=== PATIENT | female | born 1965 | race Caucasian/White ===

== ENCOUNTER → 2017-09-28 | Day surgery (SDC) | payer BC ==
[~2017-09-28] MED LIST: Ketorolac 30 MG/ML SDV IVPUSH SCH; Lactated Ringers 1,000 ML IV SCH; Lactated Ringers 1,000 ML ONE; Lidocaine 1% 4 ML ONE; Lidocaine 1%/Sod Bicarbonate in NS 8.4% 1 ML Syringe IV PRN; Midazolam 1 MG/ML 2 ML SDV ONE; Propofol 200 MG/20 ML SDV ONE; Sodium Chloride 0.9% 10 ML Syringe FLUSH PRN; fentaNYL 100 MCG/2 ML SDV ONE
--- NOTE | 2017-09-28 08:13 | PCM.PREANE ---
Preanesthetic Assessment - Anesthesia/Transfusion/Family Hx Anesthesia History: Prior Anesthesia Without Reaction Family History of Anesthesia Reaction: No Transfusion History: No Prior Transfusion(s) - Review of Systems General: No Symptoms Pulmonary: No Symptoms Cardiovascular: Dyspnea on Exertion Gastrointestinal: Diarrhea Neurological: No Symptoms Other: Reports: Diabetes (check @ 0800 176) - Physical Assessment NPO Status Date: 09/27/17 NPO Status Time: 00:00 Pulse: 104 O2 Sat by Pulse Oximetry: 95 Respiratory Rate: 18 Blood Pressure: 142/90 Temperature: 36.9 C Height: 1.63 m Weight: 104.916 kg ASA Class: 2 Mental Status: Alert & Oriented x3 Airway Class: Mallampati = 3 Dentition: Reports: Normal Dentition Thyro-Mental Finger Breadths: 2 Mouth Opening Finger Breadths: 2 ROM/Head Extension: Full Lungs: Clear to Auscultation, Normal Respiratory Effort Cardiovascular: Regular Rate, Regular Rhythm, No Murmurs - Lab Values: Laboratory Last Values POC Glucose 175 mg/dL (70-105) H 09/28/17 07:59 - Allergies Allergies/Adverse Reactions: Allergies Allergy/AdvReac Type Severity Reaction Status Date / Time liraglutide [From Victoza] Allergy Nausea and Verified 09/25/17 13:43 Vomiting metformin Allergy Nausea and Verified 09/25/17 13:43 Vomiting metoprolol Allergy Diarrhea Verified 09/25/17 13:43 - Blood Blood Available: No Product(s) Available: None - Anesthesia Plan Pre-Op Medication Ordered: None - Acknowledgements Anesthesia Type Planned: MAC Pt an Appropriate Candidate for the Planned Anesthesia: Yes Alternatives and Risks of Anesthesia Discussed w Pt/Guardian: Yes Pt/Guardian Understands and Agrees with Anesthesia Plan: Yes PreAnesthesia Questionnaire Cardiovascular History: Reports: High Cholesterol, Hypertension Respiratory History: Reports: Sleep Apnea Gastrointestinal History: Reports: GERD Musculoskeletal History: Reports: Other (See Below) Other Musculoskeletal History: foot pain Neurological History: Reports: Migraines, Other (See Below) Other Neuro History: restless leg Endocrine/Metabolic History: Reports: Diabetes, Type II, Obesity/BMI 30+, Vitamin D Deficiency - Past Surgical History GI Surgical History: Reports: EGD Musculoskeletal Surgical History: Reports: Arthroscopic Knee, Other (See Below) Other Musculoskeletal Surgeries/Procedures:: right acl recostruction - SUBSTANCE USE Smoking Status *Q: Current Every Day Smoker Tobacco Use Within Last Twelve Months: Cigarettes Second Hand Smoke Exposure: No Days Per Week of Alcohol Use: 0 Recreational Drug Use History: No - HOME MEDS Home Medications: Home Meds Amitriptyline [Elavil] 50 mg PO BEDTIME 01/01/15 [History] Lisinopril 20 mg PO DAILY 01/01/15 [History] Aspirin [Halfprin] 81 mg PO DAILY 09/25/17 [History] Cholecalciferol (Vitamin D3) [Vitamin D3] 2,000 units PO DAILY 09/25/17 [History ] Ezetimibe [Zetia] 10 mg PO DAILY 09/25/17 [History] Fish Oil/[place]-3 Fatty Acids [Fish Oil 1,000 MG] 1 cap PO DAILY 09/25/17 [ History] Insulin Aspart [Novolog Flexpen] 16 units SUBCUT TID 09/25/17 [History] Insulin Detemir [Levemir Flextouch] 60 unit SUBCUT DAILY 09/25/17 [History] Magnesium Oxide 400 mg PO DAILY 09/25/17 [History] Multivitamin [Multivitamins] 1 cap PO DAILY 09/25/17 [History] Pantoprazole Sodium [Protonix] 40 mg PO DAILY 09/25/17 [History] SUMAtriptan Succinate [Imitrex] 100 mg PO ASDIRECTED PRN 09/25/17 [History] Ubidecarenone [Co Q-10] 100 mg PO DAILY 09/25/17 [History] Vitamin E 100 unit PO DAILY 09/25/17 [History] atorvaSTATin [Lipitor] 40 mg PO DAILY 09/25/17 [History] glipiZIDE [Glucotrol XL] 10 mg PO DAILY 09/25/17 [History] - CURRENT (IN HOUSE) MEDS Current Meds: Current Medications Lactated Ringer's (Ringers, Lactated) 1,000 mls @ 125 mls/hr IV ASDIRECTED JAN Stop: 09/28/17 18:00 Lidocaine/Sodium Bicarbonate (Buffered Lidocaine 1% In Ns 8.4%) 0.25 ml IV ONETIME PRN PRN Reason: Prior to IV Start Stop: 09/28/17 18:00 Sodium Chloride (Saline Flush) 10 ml FLUSH ASDIRECTED PRN PRN Reason: Keep Vein Open Stop: 09/28/17 18:00
--- NOTE | 2017-09-28 10:02 | PCM.OPNOTE ---
- General Post-Op/Procedure Note Date of Surgery/Procedure: 09/28/17 Operative Procedure(s): positive fit ttest and GERD Pre Op Diagnosis: EGD with bx and colonoscopy to cecum Post-Op Diagnosis: Same Anesthesia Technique: MAC Primary Surgeon: Sunday Ramirez EBL in mLs: 0 Complications: None Condition: Good
[2017-09-28 10:24] VITALS: BP 131/80
--- NOTE | 2017-09-29 08:42 | OR ---
DATE OF OPERATION: 09/28/2017 SURGEON: Sunday Ramirez MD PREOPERATIVE DIAGNOSIS: Gastroesophageal reflux disease. POSTOPERATIVE DIAGNOSIS: Gastroesophageal reflux disease. PROCEDURE: EGD with biopsy done under IV sedation. FINDINGS: Second portion of the duodenum, duodenal bulb, and pyloric channel were normal. Antrum, body, and cardia of the stomach were unremarkable. Biopsy of the antrum was done looking for H. pylori. J-maneuver showed a small sliding hiatal hernia. Fundus was normal. GE junction was located at 39 cm, did not show any acute disease. Biopsies were taken. Rest of the esophagus was viewed and was normal. The patient tolerated the procedure, which is EGD with biopsy under IV sedation. DESCRIPTION OF PROCEDURE: The patient was taken to the endoscopy room, placed in a supine position, connected to the monitoring equipment, given IV sedation, and placed in the left lateral position. Bite block was inserted, and video Olympus gastroscope was placed in the posterior oropharynx. Under direct vision, threaded past the cricopharyngeus down the esophagus into the stomach. The stomach was insufflated, and the scope passed through the pylorus to the second portion of the duodenum. The second portion of the scope was slowly withdrawn showing normal second portion of the duodenum, duodenal bulb, and pyloric channel. Antrum, body, and cardia of the stomach were viewed. J-maneuver showed an intact fundus. The hiatus showed a small sliding hiatal hernia. Biopsies of the antrum were performed. Scope was withdrawn through the GE junction which did not show any acute disease. Z-line was intact. Biopsies of the GE junction were performed. The rest of the esophagus was viewed as the scope withdrawn and was unremarkable. The patient tolerated the procedure. The specimen was sent to pathology in labeled container and IV sedation continued for colonoscopy. OPERATION PERFORMED: ANESTHESIA: ESTIMATED BLOOD LOSS: MMODAL /[id number]
--- NOTE | 2017-09-29 08:42 | OR ---
DATE OF OPERATION: 09/28/2017 SURGEON: Sunday Ramirez MD PREOPERATIVE DIAGNOSIS: Positive FIT test. POSTOPERATIVE DIAGNOSIS: Positive FIT test. OPERATION PERFORMED: Colonoscopy of cecum. FINDINGS: Occasional diverticula in the sigmoid colon. There were no angiodysplasias, neoplasias, large tumor masses, ulcerations, or hemorrhoids. ANESTHESIA: Procedure done under IV sedation. DESCRIPTION OF PROCEDURE: The patient having been taken to the endoscopy room, placed in a supine position, connected to monitoring, and given IV sedation for upper GI endoscopy. IV sedation was continued for colonoscopy. She was placed in the left lateral position. The perianal area was inspected, it was normal. Rectal exam showed good sphincter tone. A video Olympus colonoscope was then introduced into the rectum and threaded up without problem to the cecum, where the appendicular orifice was noted. Prep was excellent. [place] cleansing score grade A and the scope was slowly withdrawn showing the cecum, ascending colon, transverse colon, descending colon, sigmoid colon, and rectum. A retroflexed view was done. The patient tolerated the procedure, the above noted was found, and the recommendationto repeat colonoscopy in 10 years and have her follow up in the clinic. ESTIMATED BLOOD LOSS: MMODAL /[id number]
== END | disposition home or self-care (01) ==
LOC: JD.SDS 07:28
PROVIDERS: ATTEND Surgery
DX: K29.50 Unspecified chronic gastritis without bleeding (principal); K20.9 Esophagitis, unspecified; K44.9 Diaphragmatic hernia without obstruction or gangrene; K57.30 Diverticulosis of large intestine without perforation or abscess without bleeding; I10 Essential (primary) hypertension; E78.2 Mixed hyperlipidemia; E11.9 Type 2 diabetes mellitus without complications; K21.9 Gastro-esophageal reflux disease without esophagitis; G47.33 Obstructive sleep apnea (adult) (pediatric); Z88.8 Allergy status to other drugs, medicaments and biological substances; Z79.4 Long term (current) use of insulin; Z79.82 Long term (current) use of aspirin; Z79.899 Other long term (current) drug therapy; F17.210 Nicotine dependence, cigarettes, uncomplicated
CPT/HCPCS: 43239; 45378; 81025; 82962; J1885; J2250; J3010; J7120; 00810; J2704

== ENCOUNTER 2017-11-20 07:45 | Emergency (ER) | payer BC ==
[2017-11-20 07:54] VITALS: BP 137/99
[2017-11-20] MEDS ORDERED: Metoclopramide 10 MG/2 ML SDV IVPUSH ONE ×2 (08:04→08:09)
[2017-11-20] MEDS ORDERED: Ketorolac 30 MG/ML SDV IVPUSH SCH (08:15)
[2017-11-20] MEDS ORDERED: Dextrose 5%-Lactated Ringers 1,000 ML IV SCH ×2 (08:15)
--- NOTE | 2017-11-20 08:15 | EDM.PDOC ---
ED HPI GENERAL MEDICAL PROBLEM - General Chief Complaint: Gastrointestinal Problem Stated Complaint: VOMITING AND DIARRHEA X 12 HRS Time Seen by Provider: 11/20/17 08:00 Source of Information: Reports: Patient, Family (spouse) History Limitations: Reports: No Limitations - History of Present Illness INITIAL COMMENTS - FREE TEXT/NARRATIVE: 52-year-old female presents the ED with history of intractable nausea and vomiting and large-volume water loss diarrhea since 2000 hrs. last evening. Patient reports she does not believe she got into any bad food.Has been basically eating the same foods as her for the last 2 days. The lipase she's been is to the grocery store and [employer]. She does have some chills and a terrible uncomfortable feeling in the upper epigastrium that seems to radiate under the costal margins to her back a bit. This is compatible with metabolic acidosis. Of note the patient is a type II diabetic controlled with insulin and glipizide. She did not check her sugars this morning. She feels lightheaded and dizzy. She spent most of the night in the bathroom on the floor. Emesis is been bilious without any blood. Stools have been yellow content but large-volume water loss. No reveals severe abdominal cramps. No previous abdominal surgery. Recent antibiotic usage. Onset: Sudden Onset Date: 11/19/17 Onset Time: 20:00 Duration: Hour(s): Location: Reports: Abdomen (Nausea vomiting and diarrhea.) Quality: Reports: Ache, Pressure Severity: Moderate (Mostly in the epigastrium) Improves with: Reports: None Worsens with: Reports: Eating Context: Denies: Activity, Exercise (Nava drink or eat anything.), Lifting, Sick Contact, Trauma, Other Associated Symptoms: Reports: Diaphoresis (Chills but no defined fever), Fever/ Chills, Loss of Appetite, Malaise, Nausea/Vomiting, Weakness (Especially lower extremities.). Denies: Confusion, Chest Pain, Cough, cough w sputum, Headaches , Rash (Intractable 12 hours), Seizure, Shortness of Breath, Syncope Treatments LOSS PREVENTION RESEARCH ENGINEER: Reports: Other (see below) (None.) - Related Data Allergies Allergy/AdvReac Type Severity Reaction Status Date / Time latex Allergy Rash Verified 11/20/17 07:54 liraglutide [From Victoza] AdvReac Nausea and Verified 09/28/17 10:29 Vomiting metformin AdvReac Nausea and Verified 09/28/17 10:29 Vomiting metoprolol AdvReac Diarrhea Verified 09/28/17 10:29 Home Meds: Home Meds Amitriptyline [Elavil] 50 mg PO BEDTIME 01/01/15 [History] Lisinopril 20 mg PO DAILY 01/01/15 [History] Aspirin [Halfprin] 81 mg PO DAILY 09/25/17 [History] Cholecalciferol (Vitamin D3) [Vitamin D3] 2,000 units PO DAILY 09/25/17 [History ] Ezetimibe [Zetia] 10 mg PO DAILY 09/25/17 [History] Fish Oil/[place]-3 Fatty Acids [Fish Oil 1,000 MG] 1 cap PO DAILY 09/25/17 [ History] Insulin Aspart [Novolog Flexpen] 20 units SUBCUT TID 09/25/17 [History] Insulin Detemir [Levemir Flextouch] 60 unit SUBCUT DAILY 09/25/17 [History] Magnesium Oxide 400 mg PO DAILY 09/25/17 [History] Multivitamin [Multivitamins] 1 cap PO DAILY 09/25/17 [History] Pantoprazole Sodium [Protonix] 40 mg PO DAILY 09/25/17 [History] SUMAtriptan Succinate [Imitrex] 100 mg PO ASDIRECTED PRN 09/25/17 [History] Ubidecarenone [Co Q-10] 100 mg PO DAILY 09/25/17 [History] Vitamin E 100 unit PO DAILY 09/25/17 [History] atorvaSTATin [Lipitor] 40 mg PO DAILY 09/25/17 [History] glipiZIDE [Glucotrol XL] 10 mg PO DAILY 09/25/17 [History] Triamcinolone Acetonide [Triamcinolone Acetonide 0.1% Crm] 1 applic TOP ASDIRECTED 09/28/17 [History] Dicyclomine [Bentyl] 20 mg PO Q6H PRN #5 tablet 11/20/17 [Rx] Ondansetron [Zofran] 4 mg BUCCAL Q6H PRN #8 tab 11/20/17 [Rx] Past Medical History Cardiovascular History: Reports: High Cholesterol, Hypertension Respiratory History: Reports: Sleep Apnea Gastrointestinal History: Reports: GERD Musculoskeletal History: Reports: Other (See Below) Other Musculoskeletal History: foot pain Neurological History: Reports: Migraines, Other (See Below) Other Neuro History: restless leg Endocrine/Metabolic History: Reports: Diabetes, Type II, Obesity/BMI 30+, Vitamin D Deficiency - Past Surgical History GI Surgical History: Reports: Colonoscopy, EGD Musculoskeletal Surgical History: Reports: Arthroscopic Knee, Other (See Below) Other Musculoskeletal Surgeries/Procedures:: right acl recostruction Social & Family History - Tobacco Use Smoking Status *Q: Current Every Day Smoker Years of Tobacco use: 25 Packs/Tins Daily: 1 Second Hand Smoke Exposure: No - Caffeine Use Caffeine Use: Reports: Coffee, Soda - Alcohol Use Days Per Week of Alcohol Use: 0 - Recreational Drug Use Recreational Drug Use: No Drug Use in Last 12 Months: No - Living Situation & Occupation Living situation: Reports: Occupation: Unemployed ED ROS GENERAL - Review of Systems Review Of Systems: See Below Constitutional: Reports: Chills, Malaise, Weakness, Fatigue, Decreased Appetite HEENT: Reports: No Symptoms Respiratory: Reports: No Symptoms Cardiovascular: Reports: No Symptoms Endocrine: Reports: Fatigue, High Glucose GI/Abdominal: Reports: Abdominal Pain (Moreover pressure primarily in the epigastrium.), Diarrhea (Watery and yellow in consistency with large volume losses almost hourlyx 12..), Decreased Appetite, Nausea, Vomiting (Bilious emesis intractably for the last 12 hours.) : Reports: No Symptoms Musculoskeletal: Reports: Muscle Pain (Mild generalized myalgia.) Skin: Reports: No Symptoms Neurological: Reports: Dizziness. Denies: Trouble Speaking, Change in Speech, Gait Disturbance (With walking and standing.) Psychiatric: Reports: No Symptoms Hematologic/Lymphatic: Reports: No Symptoms Immunologic: Reports: No Symptoms ED EXAM, GI/ABD - Physical Exam Exam: See Below Exam Limited By: No Limitations General Appearance: Alert, WD/WN, Mild Distress Eyes: Bilateral: Normal Appearance (No jaundice.) Throat/Mouth: Other Head: Atraumatic (Tongue is very dry and coated.), Normocephalic Neck: Normal Inspection, Supple, Non-Tender, Full Range of Motion. No: Lymphadenopathy (L), Lymphadenopathy (R) Respiratory/Chest: No Respiratory Distress, Lungs Clear, Normal Breath Sounds, Chest Non-Tender Cardiovascular: Normal Peripheral Pulses, No Edema, No Gallop, No Murmur, No Rub , Tachycardia (Resting heart rate is 1 35/m.) GI/Abdominal Exam: No Organomegaly, Tender (Mostly in the epigastrium and appears to be musculoskeletal.), Other (Moderate obesity. Abdominal wall is firm palpation without any surgical scars. Moderately distended and mildly tympanitic to percussion.) Back Exam: Normal Inspection, Full Range of Motion. No: CVA Tenderness (L), CVA Tenderness (R) Extremities: Normal Inspection, Normal Range of Motion, Non-Tender, No Pedal Edema Neurological: Alert, Oriented, CN II-XII Intact, Normal Cognition Psychiatric: Normal Affect, Normal Mood Skin Exam: Warm, Dry, Intact, Normal Color, No Rash Course - Vital Signs Last Recorded V/S: Last Vital Signs Temp 36.7 C 11/20/17 07:49 Pulse 133 H 11/20/17 07:49 Resp 16 11/20/17 07:49 BP 137/99 H 11/20/17 07:49 Pulse Ox 93 L 11/20/17 07:49 - Orders/Labs/Meds Labs: Laboratory Tests 11/20/17 11/20/17 11/20/17 Range/Units 08:00 08:00 08:00 WBC 11.66 H (3.98-10.04) K/mm3 RBC 5.44 H (3.98-5.22) M/mm3 Hgb 16.8 H (11.2-15.7) gm/L Hct 48.5 H (34.1-44.9) % MCV 89.2 (79.4-94.8) fl MCH 30.9 (25.6-32.2) pg MCHC 34.6 (32.2-35.5) g/dl RDW Std Deviation 44.0 (36.4-46.3) fL Plt Count 305 (182-369) K/mm3 MPV 9.2 L (9.4-12.3) fl Neutrophils % (Manual) 80 H (40-60) % Band Neutrophils % 0 (0-10) % Lymphocytes % (Manual) 18 L (20-40) % Monocytes % (Manual) 2 (2-10) % Eosinophils % (Manual) 0 L (0.7-5.8) % Basophils % (Manual) 0 L (0.1-1.2) Platelet Estimate Adequate RBC Morph Comment Normal Sodium 134 L (136-145) mEq/L Potassium 4.1 (3.5-5.1) mEq/L Chloride 98 (98-107) mEq/L Carbon Dioxide 26 (21-32) mEq/L Anion Gap 14.1 (5-15) BUN 17 (7-18) mg/dL Creatinine 1.1 H (0.55-1.02) mg/dL Est Cr Clr Drug Dosing 52.25 mL/min Estimated GFR (MDRD) 52 (>60) mL/min BUN/Creatinine Ratio 15.5 (14-18) Glucose 390 H (74-106) mg/dL Calcium 8.8 (8.5-10.1) mg/dL Magnesium (1.8-2.4) mg/dl Total Bilirubin 0.9 (0.2-1.0) mg/dL AST 18 (15-37) U/L ALT 31 (14-59) U/L Alkaline Phosphatase 83 (46-116) U/L C-Reactive Protein 11.9 H* (<1.0) mg/dL Total Protein 7.4 (6.4-8.2) g/dl Albumin 3.5 (3.4-5.0) g/dl Globulin 3.9 gm/dL Albumin/Globulin Ratio 0.9 L (1-2) Amylase (25-115) U/L Ketones 0.01 (0.0-0.3) mM 11/20/17 Range/Units 08:00 WBC (3.98-10.04) K/mm3 RBC (3.98-5.22) M/mm3 Hgb (11.2-15.7) gm/L Hct (34.1-44.9) % MCV (79.4-94.8) fl MCH (25.6-32.2) pg MCHC (32.2-35.5) g/dl RDW Std Deviation (36.4-46.3) fL Plt Count (182-369) K/mm3 MPV (9.4-12.3) fl Neutrophils % (Manual) (40-60) % Band Neutrophils % (0-10) % Lymphocytes % (Manual) (20-40) % Monocytes % (Manual) (2-10) % Eosinophils % (Manual) (0.7-5.8) % Basophils % (Manual) (0.1-1.2) Platelet Estimate RBC Morph Comment Sodium (136-145) mEq/L Potassium (3.5-5.1) mEq/L Chloride (98-107) mEq/L Carbon Dioxide (21-32) mEq/L Anion Gap (5-15) BUN (7-18) mg/dL Creatinine (0.55-1.02) mg/dL Est Cr Clr Drug Dosing mL/min Estimated GFR (MDRD) (>60) mL/min BUN/Creatinine Ratio (14-18) Glucose (74-106) mg/dL Calcium (8.5-10.1) mg/dL Magnesium 1.4 L (1.8-2.4) mg/dl Total Bilirubin (0.2-1.0) mg/dL AST (15-37) U/L ALT (14-59) U/L Alkaline Phosphatase (46-116) U/L C-Reactive Protein (<1.0) mg/dL Total Protein (6.4-8.2) g/dl Albumin (3.4-5.0) g/dl Globulin gm/dL Albumin/Globulin Ratio (1-2) Amylase 8 L (25-115) U/L Ketones (0.0-0.3) mM Meds: Medications Discontinued Medications Generic Name Dose Route Start Last Admin Trade Name Chandanq PRN Reason Stop Dose Admin Dextrose/Lactated Ringer's 1,000 mls @ 999 mls/hr 11/20/17 08:15 11/20/17 08: 10 Dextrose 5%-Lactated Ringers IV 999 mls/hr STAT JAN Administration Dextrose/Lactated Ringer's 1,000 mls @ 999 mls/hr 11/20/17 08:15 Dextrose 5%-Lactated Ringers IV ASDIRECTED [facility] Insulin Detemir 40 unit 11/20/17 09:24 11/20/17 09:46 Levemir SUBCUT 11/20/17 09:25 40 units ONETIME ONE Administration Insulin Human Regular 10 unit 11/20/17 09:24 11/20/17 09:46 Humulin R SUBCUT 11/20/17 09:25 10 unit ONETIME ONE Administration Protocol Ketorolac Tromethamine 30 mg 11/20/17 08:15 11/20/17 08:16 Toradol IVPUSH 30 mg ONETIME JAN Administration Ketorolac Tromethamine Confirm 11/20/17 08:21 11/20/17 08:21 Toradol Administered 11/20/17 08:22 Not Given Dose 30 mg .ROUTE .STK-MED ONE Metoclopramide HCl 10 mg 11/20/17 08:04 11/20/17 08:10 Reglan IVPUSH 11/20/17 08:05 10 mg ONETIME ONE Administration Metoclopramide HCl 10 mg 11/20/17 08:09 11/20/17 08:13 Reglan IVPUSH 11/20/17 08:10 Not Given ONETIME ONE - Radiology Interpretation Free Text/Narrative:: 52-year-old female presents to the ED with acute onset of nausea vomiting and large volumes diarrhea losses starting 12 hours ago. She's vomited most of the night and unable to sleep. She's had a large volume stool loss almost every hour. She appears to picked up a viral gastroenteritis that is going through the community at present. Associated chills but no documented fever. She is a type II diabetic controlled with insulin and glipizide. Does not check her blood sugars this morning. She has withheld her insulin dose. Plan IV D5 Ringer' s lactate at open. Will give Reglan 10 mg IV and Toradol 30 g IV for nausea vomiting and abdominal discomfort which I believe is due to mild metabolic acidosis. Labs will be drawn for CBC CMP amylase CRP magnesium and serum ketones. - Re-Assessments/Exams Free Text/Narrative Re-Assessment/Exam: 11/20/17 09:23 White count is mildly elevated at 11.66. Hemoglobin is elevated at 16.8 with hematocrit of 48.5 suggesting some degree of hemoconcentration. Platelet count is 305,000. Differential reveals 80% neutrophils and no bands reported. Sodium is slightly low at 134. Potassium 4.1. Chloride 98 bicarbonate is 26. And a gap is 14.1. BUNs 17. Creatinine is 1.1.e GFR is 52. Glucose at this time is 390. Calcium is 8.8 magnesium slightly low at 1.4. Bilirubin is 0.9. C-reactive protein is markedly elevated at 11.9. Amylase is normal at 8. Patient is feeling better in terms no further nausea or vomiting. She's had no diarrhea since entering the ED. Blood sugars fairly high at this time and therefore we will give her two thirds of her normal Levemir dose i.e. 40 mg subcutaneous. Also 10 units of regular insulin subcutaneously to bring her sugars under control. 11/20/17 09:50 ; Serum ketones were 0.01 i.e. normal. Patient feels much improved after liter of IV fluids is requesting to go home. She will be discharged on Zofran 4 mg sublingual every 4-6 hours when necessary as needed. Also Bentyl 20 mg every 6 hours. For relief of town cramping pain. Advisable clear fluid diet stay away from all dairy products and no apple or grape juice until stools are formed backup. She will monitor her blood sugars every 3 hours and give insulin per sliding scale she has at home. She will return to the ED over the weekend if she continues to have nausea or vomiting. Departure - Departure Time of Disposition: :43 Disposition: Home, Self-Care 01 Condition: Fair Clinical Impression: Gastroenteritis Hyperglycemia due to type 2 diabetes mellitus Qualifiers: Diabetes mellitus intermediate card tender insulin use: with detention use Qualified Code(s): E11.65 - Type 2 diabetes mellitus with hyperglycemia - Discharge Information Prescriptions: Dicyclomine [Bentyl] 20 mg PO Q6H PRN #5 tablet PRN Reason: Abdominal cramps/diarrhea Ondansetron [Zofran] 4 mg [place] Q6H PRN #8 tab PRN Reason: nausea or vomiting Instructions: Type 2 Diabetes Mellitus, Adult, Nausea, Adult Referrals: Rupal Finch MD [Primary Care Provider] - Forms: ED Department Discharge Additional Instructions: Evaluation the emergency room today in regards to acute onset of nausea vomiting and associated prolific diarrhea with large volume stool losses. Illness started proximal to 12 hours before arrival in the ED. Note type 2 diabetes controlled with insulin and glipizide. Diagnosis is viral gastroenteritis. You're treated in the ER with a liter of IV fluids to provide rehydration and medication Reglan 10 mg IV for nausea relief and Toradol 30 mg IV for abdominal discomfort. Treatment at home is clear fluids such as Gatorade or Powerade ideally 5-6 ounces sipped per hour once this is tolerated may advance to crackers and toast. If this is tolerated may advance to soup broth or chicken riceturkey noodle etc. May use Zofran 4 mg of the tongue every 4 hours as needed for nausea or vomiting relief. Bentyl 20 mg one tablet every 6 hours for at least 3 tablets and then see how you're doing as far as abdominal pain or diarrhea. He be used every 6 hours after this for relief of abdominal discomfort cramping etc. Diarrhea usually last 2-3 days. The vomiting component has been lasting about 16-24 hours. Your blood sugar the ED today was 319 therefore you were given two thirds of your normal Levemir dose 40 units subcutaneously and 10 units of regular insulin subcutaneously for blood sugar control. Suggest checking her sugars every 3-4 hours today and use regular insulin as needed to provide control. Ideally would like her sugars between 150 and 200. Of course return to the ED if vomiting persists in spite of medication etc.
[2017-11-20] MEDS ORDERED: Ketorolac 30 MG/ML SDV ONE (08:21)
[2017-11-20] MEDS ORDERED: Insulin Regular, Human 100 Units/ML 3 ML Vial SUBCUT ONE (09:24)
[2017-11-20] MEDS ORDERED: Insulin Detemir 100 Units/ML 3 ML Pen SUBCUT ONE (09:24)
== END 2017-11-20 09:50 | disposition home or self-care (01) ==
LOC: JD.ED 07:45
DX: K52.9 Noninfective gastroenteritis and colitis, unspecified (principal); E11.65 Type 2 diabetes mellitus with hyperglycemia; I10 Essential (primary) hypertension; E78.00 Pure hypercholesterolemia, unspecified; F17.210 Nicotine dependence, cigarettes, uncomplicated; Z91.040 Latex allergy status; Z88.8 Allergy status to other drugs, medicaments and biological substances; Z79.4 Long term (current) use of insulin; Z79.899 Other long term (current) drug therapy
CPT/HCPCS: 36415; 80053; 82009; 82150; 83735; 85025; 86140; 96361; 96372; 96374; 96375; 99284; J1815; J1817; J1885; J2765; J7042

== ENCOUNTER 2018-02-13 16:11 | Emergency (ER) | payer BC ==
[2018-02-13 16:23] VITALS: BP 135/85
--- NOTE | 2018-02-13 16:46 | EDM.PDOC ---
ED HPI GENERAL MEDICAL PROBLEM - General Chief Complaint: Abdominal Pain Stated Complaint: LLQ pain Time Seen by Provider: 02/13/18 16:30 Source of Information: Reports: Patient, RN Notes Reviewed History Limitations: Reports: No Limitations - History of Present Illness INITIAL COMMENTS - FREE TEXT/NARRATIVE: 52 year old female presents to the ED with complaints of left lower quadrant and midline cramping. She describes it as severe. Symptoms started around 10am this morning. She gets relief from sitting on the toilet. She's felt like she needs to have a bowel movement but hasn't been able. She denies constipation. States "I've never been constipated in my whole life." She reports a normal, soft BM yesterday. She is passing gas today. Reports nausea but no vomiting. She had a colonoscopy a couple months ago and was told she has diverticulosis. She has no history of diverticulitis. No fever but has had intermittent chills and sweats. No diarrhea. Has not ate any rotten food. Her abdomen is distended. She has a poor appetite. History of Type II diabetes. She was in the ED in October for similar symptoms and was felt to have gastroenteritis. Lower Abdominal Pain Score (Numeric/FACES): 9 - Related Data Allergies Allergy/AdvReac Type Severity Reaction Status Date / Time latex Allergy Rash Verified 02/13/18 17:32 liraglutide [From Victoza] AdvReac Nausea and Verified 02/13/18 17:32 Vomiting metformin AdvReac Nausea and Verified 02/13/18 17:32 Vomiting metoprolol AdvReac Diarrhea Verified 02/13/18 17:32 trigenta Allergy Cannot Uncoded 02/13/18 17:32 Remember Home Meds: Home Meds Amitriptyline [Elavil] 50 mg PO BEDTIME 01/01/15 [History] Lisinopril 20 mg PO DAILY 01/01/15 [History] Aspirin [Halfprin] 81 mg PO DAILY 09/25/17 [History] Cholecalciferol (Vitamin D3) [Vitamin D3] 2,000 units PO DAILY 09/25/17 [History ] Ezetimibe [Zetia] 10 mg PO DAILY 09/25/17 [History] Fish Oil/[place]-3 Fatty Acids [Fish Oil 1,000 MG] 1 cap PO DAILY 09/25/17 [ History] Insulin Aspart [Novolog Flexpen] 20 units SUBCUT TID 09/25/17 [History] Insulin Detemir [Levemir Flextouch] 60 unit SUBCUT DAILY 09/25/17 [History] Magnesium Oxide 400 mg PO DAILY 09/25/17 [History] Multivitamin [Multivitamins] 1 cap PO DAILY 09/25/17 [History] Pantoprazole Sodium [Protonix] 40 mg PO DAILY 09/25/17 [History] SUMAtriptan Succinate [Imitrex] 100 mg PO ASDIRECTED PRN 09/25/17 [History] Ubidecarenone [Co Q-10] 100 mg PO DAILY 09/25/17 [History] Vitamin E 100 unit PO DAILY 09/25/17 [History] atorvaSTATin [Lipitor] 40 mg PO DAILY 09/25/17 [History] glipiZIDE [Glucotrol XL] 10 mg PO DAILY 09/25/17 [History] Triamcinolone Acetonide [Triamcinolone Acetonide 0.1% Crm] 1 applic TOP ASDIRECTED 09/28/17 [History] Dicyclomine [Bentyl] 20 mg PO Q6H PRN #5 tablet 11/20/17 [Rx] Ondansetron [Zofran] 4 mg BUCCAL Q6H PRN #8 tab 11/20/17 [Rx] Varenicline [Chantix] 1 mg PO BID 02/13/18 [History] Past Medical History Cardiovascular History: Reports: High Cholesterol, Hypertension Respiratory History: Reports: Sleep Apnea Gastrointestinal History: Reports: GERD Musculoskeletal History: Reports: Other (See Below) Other Musculoskeletal History: foot pain Neurological History: Reports: Migraines, Other (See Below) Other Neuro History: restless leg Endocrine/Metabolic History: Reports: Diabetes, Type II, Obesity/BMI 30+, Vitamin D Deficiency - Past Surgical History GI Surgical History: Reports: Colonoscopy, EGD Musculoskeletal Surgical History: Reports: Arthroscopic Knee, Other (See Below) Other Musculoskeletal Surgeries/Procedures:: right acl recostruction Social & Family History - Tobacco Use Smoking Status *Q: Current Some Day Smoker Years of Tobacco use: 25 Packs/Tins Daily: 1 Second Hand Smoke Exposure: No - Caffeine Use Caffeine Use: Reports: Coffee - Alcohol Use Days Per Week of Alcohol Use: 0 - Recreational Drug Use Recreational Drug Use: No Drug Use in Last 12 Months: No - Living Situation & Occupation Living situation: Reports: Occupation: Unemployed ED ROS GENERAL - Review of Systems Review Of Systems: See Below Constitutional: Reports: Chills, Diaphoresis, Decreased Appetite. Denies: Fever Respiratory: Reports: No Symptoms. Denies: Shortness of Breath Cardiovascular: Reports: No Symptoms. Denies: Chest Pain GI/Abdominal: Reports: Abdominal Pain, Decreased Appetite, Distension, Flatus, Nausea. Denies: Black Stool, Bloody Stool, Constipation, Diarrhea, Melena, Vomiting : Reports: No Symptoms. Denies: Dysuria, Flank Pain, Frequency, Urgency ED EXAM, GI/ABD - Physical Exam Exam: See Below Exam Limited By: No Limitations General Appearance: Alert, WD/WN, Moderate Distress, Obese Respiratory/Chest: No Respiratory Distress, Lungs Clear, Normal Breath Sounds Cardiovascular: Normal Peripheral Pulses, No Murmur, Tachycardia GI/Abdominal Exam: Distended, Tender (llq), Abnormal Bowel Sounds (hyperactive ) . No: Guarding, Rigid, Rebound, Mass Back Exam: Normal Inspection, Full Range of Motion. No: CVA Tenderness (L), CVA Tenderness (R) Neurological: Alert, Oriented Course - Vital Signs Last Recorded V/S: Last Vital Signs Temp 97.4 F 02/13/18 16:20 Pulse 107 H 02/13/18 16:20 Resp 18 02/13/18 16:20 BP 135/85 02/13/18 16:20 Pulse Ox 95 02/13/18 16:20 - Orders/Labs/Meds Orders: Active Orders 24 hr Category Date Time Status Peripheral IV Care [RC] . DIRECTED Care 02/13/18 17:06 Active Abdomen Pelvis w Cont [CT] Stat Exams 02/13/18 16:45 Taken CULTURE STOOL + SHIGATOX [RM] Stat Lab 02/13/18 17:05 Received Peripheral IV Insertion Adult [OM.PC] Stat Oth 02/13/18 17:05 Ordered Labs: Laboratory Tests 02/13/18 02/13/18 02/13/18 Range/Units 16:50 16:50 17:05 WBC 18.30 H (3.98-10.04) K/mm3 RBC 5.35 H (3.98-5.22) M/mm3 Hgb 16.2 H (11.2-15.7) gm/L Hct 47.0 H (34.1-44.9) % MCV 87.9 (79.4-94.8) fl MCH 30.3 (25.6-32.2) pg MCHC 34.5 (32.2-35.5) g/dl RDW Std Deviation 40.8 (36.4-46.3) fL Plt Count 324 (182-369) K/mm3 MPV 9.1 L (9.4-12.3) fl Neutrophils % (Manual) 87 H (40-60) % Band Neutrophils % 1 (0-10) % Lymphocytes % (Manual) 9 L (20-40) % Atypical Lymphs % 0 % Monocytes % (Manual) 1 L (2-10) % Eosinophils % (Manual) 2 (0.7-5.8) % Basophils % (Manual) 0 L (0.1-1.2) Platelet Estimate Adequate Plt Morphology Comment Normal RBC Morph Comment Normal Sodium 136 (136-145) mEq/L Potassium 4.2 (3.5-5.1) mEq/L Chloride 98 (98-107) mEq/L Carbon Dioxide 25 (21-32) mEq/L Anion Gap 17.2 H (5-15) BUN 18 (7-18) mg/dL Creatinine 0.9 (0.55-1.02) mg/dL Est Cr Clr Drug Dosing 61.17 mL/min Estimated GFR (MDRD) > 60 (>60) mL/min BUN/Creatinine Ratio 20.0 H (14-18) Glucose 292 H (74-106) mg/dL Calcium 9.1 (8.5-10.1) mg/dL Total Bilirubin 0.5 (0.2-1.0) mg/dL AST 25 (15-37) U/L ALT 42 (14-59) U/L Alkaline Phosphatase 96 (46-116) U/L C-Reactive Protein 1.3 H* (<1.0) mg/dL Total Protein 7.6 (6.4-8.2) g/dl Albumin 4.0 (3.4-5.0) g/dl Globulin 3.6 gm/dL Albumin/Globulin Ratio 1.1 (1-2) Lipase 148 (73-393) U/L Urine Color (Yellow) Urine Appearance (Clear) Urine pH (5.0-8.0) Ur Specific [place] (1.005-1.030) Urine Protein (Negative) Urine Glucose (UA) (Negative) Urine Ketones (Negative) Urine Occult Blood (Negative) Urine Nitrite (Negative) Urine Bilirubin (Negative) Urine Urobilinogen (0.2-1.0) Ur Leukocyte Esterase (Negative) Urine RBC (0-5) /hpf Urine WBC (0-5) /hpf Ur Epithelial Cells (0-5) /hpf Urine Bacteria (FEW) /hpf Urine Mucus (FEW) /hpf Urine HCG, Qual (NEGATIVE) C.difficile [id number] Presumptive negative C. difficile Tox (PCR) Negative 02/13/18 02/13/18 Range/Units 18:16 18:16 WBC (3.98-10.04) K/mm3 RBC (3.98-5.22) M/mm3 Hgb (11.2-15.7) gm/L Hct (34.1-44.9) % MCV (79.4-94.8) fl MCH (25.6-32.2) pg MCHC (32.2-35.5) g/dl RDW Std Deviation (36.4-46.3) fL Plt Count (182-369) K/mm3 MPV (9.4-12.3) fl Neutrophils % (Manual) (40-60) % Band Neutrophils % (0-10) % Lymphocytes % (Manual) (20-40) % Atypical Lymphs % % Monocytes % (Manual) (2-10) % Eosinophils % (Manual) (0.7-5.8) % Basophils % (Manual) (0.1-1.2) Platelet Estimate Plt Morphology Comment RBC Morph Comment Sodium (136-145) mEq/L Potassium (3.5-5.1) mEq/L Chloride (98-107) mEq/L Carbon Dioxide (21-32) mEq/L Anion Gap (5-15) BUN (7-18) mg/dL Creatinine (0.55-1.02) mg/dL Est Cr Clr Drug Dosing mL/min Estimated GFR (MDRD) (>60) mL/min BUN/Creatinine Ratio (14-18) Glucose (74-106) mg/dL Calcium (8.5-10.1) mg/dL Total Bilirubin (0.2-1.0) mg/dL AST (15-37) U/L ALT (14-59) U/L Alkaline Phosphatase (46-116) U/L C-Reactive Protein (<1.0) mg/dL Total Protein (6.4-8.2) g/dl Albumin (3.4-5.0) g/dl Globulin gm/dL Albumin/Globulin Ratio (1-2) Lipase (73-393) U/L Urine Color Yellow (Yellow) Urine Appearance Clear (Clear) Urine pH 5.5 (5.0-8.0) Ur Specific [place] > or = 1.030 (1.005-1.030) Urine Protein 2+ H (Negative) Urine Glucose (UA) 2+ H (Negative) Urine Ketones 2+ H (Negative) Urine Occult Blood Negative (Negative) Urine Nitrite Negative (Negative) Urine Bilirubin 1+ H (Negative) Urine Urobilinogen 0.2 (0.2-1.0) Ur Leukocyte Esterase Negative (Negative) Urine RBC Not seen (0-5) /hpf Urine WBC 0-5 (0-5) /hpf Ur Epithelial Cells 0-5 (0-5) /hpf Urine Bacteria Rare (FEW) /hpf Urine Mucus Not seen (FEW) /hpf Urine HCG, Qual Negative (NEGATIVE) C.difficile [id number] C. difficile Tox (PCR) Meds: Medications Discontinued Medications Generic Name Dose Route Start Last Admin Trade Name Freq PRN Reason Stop Dose Admin Diatrizoate Meglum/Diatrizoate Sod 90 ml 02/13/18 17:40 02/13/18 18:40 Gastrografin 37% PO 02/13/18 17:41 90 ml ONETIME ONE Administration Sodium Chloride 500 mls @ 999 mls/hr 02/13/18 17:05 02/13/18 17:12 Normal Saline IV 02/13/18 17:35 999 mls/hr ONETIME ONE Administration Iopamidol 100 ml 02/13/18 17:40 02/13/18 18:40 Isovue-370 (76%) IVPUSH 02/13/18 17:41 100 ml ONETIME ONE Administration Ketorolac Tromethamine 30 mg 02/13/18 17:06 02/13/18 17:14 Toradol IVPUSH 02/13/18 17:07 30 mg ONETIME ONE Administration Metoclopramide HCl 5 mg 02/13/18 17:06 02/13/18 17:13 Reglan IVPUSH 02/13/18 17:07 5 mg ONETIME ONE Administration Sodium Chloride 10 ml 02/13/18 17:05 02/13/18 18:43 Saline Flush FLUSH 10 ml ASDIRECTED PRN Administration Keep Vein Open - Re-Assessments/Exams Free Text/Narrative Re-Assessment/Exam: CBC reveals a WBC of 18,000 with no bandemia. CRp is 1.3. CMP reveals anion gap of 17, glucose 292. Stool for WBCs is negative. C diff negative. Full stool culture pending. UA negative for infection. Patient was treated with Reglan, Toradol, and IV fluids She had a large, hard BM after arrival then developed diarrhea. Cramping improved after bowel movements. CT of abdomen/pelvis read by [employer]. It reveals diverticulosis with no evidence if diverticulitis. No evidence of bowel obstruction. It's possible she had an ileus which is not resolving. Patient will be prescribed Bentyl and educated on supportive care. She was educated on ER return precautions. Instructed to f/u with her PCP this week for recheck. Departure - Departure Time of Disposition: 20:19 Disposition: Home, Self-Care 01 Condition: Good Clinical Impression: Constipation Abdominal pain Qualifiers: Abdominal location: left lower quadrant Qualified Code(s): R10.32 - Left lower quadrant pain - Discharge Information Instructions: Constipation, Adult, [id number], Abdominal Pain, Adult, Easy-to -Read Referrals: Rupal Finch MD [Primary Care Provider] - Forms: ED Department Discharge Additional Instructions: Drink plenty of fluids Bentyl 3 times a day as needed for cramping. Tylenol or Ibuprofen as needed for pain or fever Return to ER if not improved in 24-48 hours, sooner if worse Follow-up with Dr. Finch this week. - My Orders Last 24 Hours: My Active Orders 02/13/18 16:45 Abdomen Pelvis w Cont [CT] Stat 02/13/18 17:05 CULTURE STOOL + SHIGATOX [RM] Stat Peripheral IV Insertion Adult [OM.PC] Stat 02/13/18 17:06 Peripheral IV Care [RC] . DIRECTED - Assessment/Plan Last 24 Hours: My Active Orders 02/13/18 16:45 Abdomen Pelvis w Cont [CT] Stat 02/13/18 17:05 CULTURE STOOL + SHIGATOX [RM] Stat Peripheral IV Insertion Adult [OM.PC] Stat 02/13/18 17:06 Peripheral IV Care [RC] . DIRECTED
[2018-02-13] MEDS ORDERED: Sodium Chloride 0.9% 500 ML IV ONE (17:05)
[2018-02-13] MEDS ORDERED: Ketorolac 30 MG/ML SDV IVPUSH ONE (17:06)
[2018-02-13] MEDS ORDERED: Metoclopramide 10 MG/2 ML SDV IVPUSH ONE (17:06)
[2018-02-13] MEDS: Sodium Chloride 0.9% 10 ML Syringe FLUSH PRN ×2 (17:16→18:43)
[2018-02-13] MEDS ORDERED: Diatrizoate Meglumine/Diatrizoate Sodium 37% 120 ML Bottle PO ONE (17:40)
[2018-02-13] MEDS ORDERED: Iopamidol 755 Mg/ML 100 ML Bottle IVPUSH ONE (17:40)
--- NOTE | 2018-02-14 12:53 | CT ---
CT abdomen and pelvis Technique: Multiple axial sections were obtained from above the dome of the diaphragm inferiorly through the pubic symphysis. Intravenous and oral contrast was utilized. Delayed images were also obtained through the bladder. Comparison: No prior abdominal and pelvic CT exam, previous abdominal ultrasound of 12/29/14 was available. Findings: Visualized lung bases show nothing acute. Liver shows no focal parenchymal abnormality. Spleen appears within normal limits. Adrenal glands show no nodule. Pancreas is within normal limits. Gallbladder contains no calcified gallstones. Cyst is identified within the right kidney measuring approximately 3.0 cm. Kidneys otherwise appear within normal limits. Aorta shows no aneurysmal dilatation. No retroperitoneal adenopathy or mesenteric abnormalities are seen. Diverticuli are seen within the sigmoid and descending colon. Several diverticuli are seen within the hepatic flexure. Appendix is seen which is normal in size. Preliminary report states mild diverticulitis. I do not definitely appreciate any diverticulitis. No free fluid is seen. Delayed images show contrast within the distal ureters and bladder. Bone window settings were reviewed which show mild degenerative change scattered throughout the spine. Impression: 1. Numerous colonic diverticuli. I do not appreciate any definite diverticulitis as noted on the preliminary [facility] report. 2. Incidental renal cyst. 3. Other incidental findings. Questionable disagree with preliminary report issued by [facility] (preliminary report was finalized on 02/13/18, 7:53 PM Central Time)
== END 2018-02-13 20:39 | disposition home or self-care (01) ==
LOC: JD.ED 16:11
DX: K59.00 Constipation, unspecified (principal); E78.00 Pure hypercholesterolemia, unspecified; I10 Essential (primary) hypertension; K21.9 Gastro-esophageal reflux disease without esophagitis; E11.9 Type 2 diabetes mellitus without complications; F17.210 Nicotine dependence, cigarettes, uncomplicated; Z91.040 Latex allergy status; Z88.8 Allergy status to other drugs, medicaments and biological substances; Z79.899 Other long term (current) drug therapy; Z79.4 Long term (current) use of insulin; Z79.82 Long term (current) use of aspirin
CPT/HCPCS: 36415; 74177; 80053; 81001; 81025; 83690; 85025; 86140; 87046; 87338; 87427; 87493; 89055; 96361; 96374; 96375; 99284; J1885; J2765; J7040; J7050; Q9963; Q9967

== ENCOUNTER 2020-01-28 18:05 | Emergency (ER) | payer MEDICARE ==
[2020-01-28 18:38] VITALS: BP 148/71; PULSE 98
[2020-01-28] MEDS ORDERED: Sodium Chloride 0.9% 10 ML Syringe FLUSH PRN (18:52)
[2020-01-28] MEDS ORDERED: Ondansetron 4 MG/2 ML SDV IVPUSH ONE (18:52)
[2020-01-28] MEDS ORDERED: Sodium Chloride 0.9% 1,000 ML IV SCH (19:00)
--- NOTE | 2020-01-28 19:17 | EDM.PDOC ---
ED HPI GENERAL MEDICAL PROBLEM - General Chief Complaint: Abdominal Pain Stated Complaint: ABDOMINAL PAIN Time Seen by Provider: 01/28/20 18:34 Source of Information: Reports: Patient History Limitations: Reports: No Limitations - History of Present Illness INITIAL COMMENTS - FREE TEXT/NARRATIVE: Patient is a 54-year-old female who presents to the emergency department with complaints of upper abdominal "pressure " and nausea that started last night. Patient states his symptoms began about 1 hour after eating dinner last night she had ribs and mashed potatoes for dinner. She does not describe the sensation is overly painful, however states it is more of a constant pressure and that she feels bloated. She states she is been told in the past that her gallbladder was "12% functional ". She states that another time her gallbladder was checked and she was told it was totally fine. She had emesis x1 this afternoon. She has been having frequent belching which she describes as "egg burps ". Pt had a normal BM this afternoon and has been passing flatus. Denies any diarrhea, dyspepsia, shortness of breath, or chest pain. She does have a history of GERD. Bilateral Upper Abdomen Pain Score (Numeric/FACES): 8 - Related Data Allergies Allergy/AdvReac Type Severity Reaction Status Date / Time latex Allergy Rash Verified 01/28/20 18:38 liraglutide [From Victoza] AdvReac Nausea and Verified 01/28/20 18:38 Vomiting metformin AdvReac Nausea and Verified 01/28/20 18:38 Vomiting metoprolol AdvReac Diarrhea Verified 01/28/20 18:38 trigenta Allergy Cannot Uncoded 01/28/20 18:38 Remember Home Meds: Home Meds Amitriptyline [Elavil] 50 mg PO BEDTIME 01/01/15 [History] Aspirin [Halfprin] 81 mg PO DAILY 09/25/17 [History] Cholecalciferol (Vitamin D3) [Vitamin D3] 2,000 units PO DAILY 09/25/17 [History ] Ezetimibe [Zetia] 10 mg PO DAILY 09/25/17 [History] Fish Oil/[place]-3 Fatty Acids [Fish Oil 1,000 MG] 1 cap PO DAILY 09/25/17 [ History] Insulin Aspart [Novolog Flexpen] 35 units SUBCUT TID 09/25/17 [History] Magnesium Oxide 400 mg PO DAILY 09/25/17 [History] Multivitamin [Multivitamins] 1 cap PO DAILY 09/25/17 [History] Pantoprazole Sodium [Protonix] 40 mg PO DAILY 09/25/17 [History] SUMAtriptan Succinate [Imitrex] 100 mg PO ASDIRECTED PRN 09/25/17 [History] Ubidecarenone [Co Q-10] 100 mg PO DAILY 09/25/17 [History] Vitamin E 100 unit PO DAILY 09/25/17 [History] atorvaSTATin [Lipitor] 40 mg PO DAILY 09/25/17 [History] Triamcinolone Acetonide [Triamcinolone Acetonide 0.1% Crm] 1 applic TOP ASDIRECTED 09/28/17 [History] Losartan [Cozaar] 1 tab PO DAILY 01/28/20 [History] Ondansetron [Zofran ODT] 4 mg PO Q6H PRN #10 tab.dis 01/28/20 [Rx] Past Medical History Cardiovascular History: Reports: High Cholesterol, Hypertension Respiratory History: Reports: Sleep Apnea Gastrointestinal History: Reports: GERD, Irritable Bowel Syndrome Musculoskeletal History: Reports: Other (See Below) Other Musculoskeletal History: foot pain Neurological History: Reports: Migraines, Other (See Below) Other Neuro History: restless leg Endocrine/Metabolic History: Reports: Diabetes, Type II, Obesity/BMI 30+, Vitamin D Deficiency - Past Surgical History GI Surgical History: Reports: Colonoscopy, EGD Musculoskeletal Surgical History: Reports: Arthroscopic Knee, Other (See Below) Other Musculoskeletal Surgeries/Procedures:: right acl recostruction Social & Family History - Family History Family Medical History: Noncontributory - Tobacco Use Smoking Status *Q: Current Every Day Smoker Years of Tobacco use: 27 Packs/Tins Daily: 0.5 - Caffeine Use Caffeine Use: Reports: Coffee - Recreational Drug Use Recreational Drug Use: No - Living Situation & Occupation Living situation: Reports: Occupation: Unemployed ED ROS GENERAL - Review of Systems Review Of Systems: See Below Constitutional: Reports: No Symptoms. Denies: Fever HEENT: Reports: No Symptoms Respiratory: Reports: No Symptoms. Denies: Shortness of Breath, Cough Cardiovascular: Reports: No Symptoms. Denies: Chest Pain, Dyspnea on Exertion, Palpitations Endocrine: Reports: No Symptoms GI/Abdominal: Reports: Abdominal Pain, Nausea, Vomiting, Other ("Bloated ".). Denies: Diarrhea : Reports: No Symptoms Musculoskeletal: Reports: No Symptoms Skin: Reports: No Symptoms Neurological: Reports: No Symptoms Psychiatric: Reports: No Symptoms Hematologic/Lymphatic: Reports: No Symptoms Immunologic: Reports: No Symptoms ED EXAM, GI/ABD - Physical Exam Exam: See Below Exam Limited By: No Limitations General Appearance: Alert, WD/WN, No Apparent Distress Respiratory/Chest: No Respiratory Distress, Lungs Clear, Normal Breath Sounds, No Accessory Muscle Use, Chest Non-Tender Cardiovascular: Normal Peripheral Pulses, Regular Rate, Rhythm, No Edema, No Gallop, No JVD, No Murmur, No Rub GI/Abdominal Exam: Normal Bowel Sounds, Soft, Non-Tender, No Organomegaly, No Abnormal Bruit, No Mass, Pelvis Stable, Distended (Mildly), Tender (Mild right upper quadrant, left upper quadrant and epigastric.) Neurological: Alert, Oriented, CN II-XII Intact, Normal Cognition, Normal Gait, Normal Reflexes, No Motor/Sensory Deficits Psychiatric: Normal Affect, Normal Mood Skin Exam: Warm, Dry, Intact, Normal Color, No Rash Course - Vital Signs Last Recorded V/S: Last Vital Signs Temp 98 F 01/28/20 18:33 Pulse 98 01/28/20 18:33 Resp 20 01/28/20 18:33 BP 148/71 H 01/28/20 18:33 Pulse Ox 95 01/28/20 18:33 - Orders/Labs/Meds Orders: Active Orders 24 hr Category Date Time Status Peripheral IV Care [RC] . DIRECTED Care 01/28/20 18:52 Active Peripheral IV Insertion Adult [OM.PC] Stat Oth 01/28/20 18:51 Ordered Labs: Laboratory Tests 01/28/20 01/28/20 01/28/20 Range/Units 19:11 19:11 19:15 WBC 9.90 (3.98-10.04) K/mm3 RBC 5.34 H (3.98-5.22) M/mm3 Hgb 14.5 D (11.2-15.7) gm/dl Hct 43.6 (34.1-44.9) % MCV 81.6 D (79.4-94.8) fl MCH 27.2 (25.6-32.2) pg MCHC 33.3 (32.2-35.5) g/dl RDW Std Deviation 44.6 (36.4-46.3) fL Plt Count 361 (182-369) K/mm3 MPV 8.5 L (9.4-12.3) fl Neut % (Auto) 74.1 H (34.0-71.1) % Lymph % (Auto) 17.5 L (19.3-51.7) % Wirt % (Auto) 6.4 (4.7-12.5) % Eos % (Auto) 1.6 (0.7-5.8) Baso % (Auto) 0.2 (0.1-1.2) % Neut # (Auto) 7.34 H (1.56-6.13) K/mm3 Lymph # (Auto) 1.73 (1.18-3.74) K/mm3 Wirt # (Auto) 0.63 H (0.24-0.36) K/mm3 Eos # (Auto) 0.16 (0.04-0.36) K/mm3 Baso # (Auto) 0.02 (0.01-0.08) K/mm3 Sodium 139 (136-145) mEq/L Potassium 4.2 (3.5-5.1) mEq/L Chloride 101 (98-107) mEq/L Carbon Dioxide 28 (21-32) mEq/L Anion Gap 14.2 (5-15) BUN 13 (7-18) mg/dL Creatinine 0.9 (0.55-1.02) mg/dL Est Cr Clr Drug Dosing 59.80 mL/min Estimated GFR (MDRD) > 60 (>60) mL/min BUN/Creatinine Ratio 14.4 (14-18) Glucose 192 H (74-106) mg/dL Calcium 8.4 L (8.5-10.1) mg/dL Total Bilirubin 0.3 (0.2-1.0) mg/dL AST 20 (15-37) U/L ALT 36 (14-59) U/L Alkaline Phosphatase 95 (46-116) U/L Troponin I < 0.017 (0.00-0.056) ng/mL C-Reactive Protein 1.3 H* (<1.0) mg/dL Total Protein 6.8 (6.4-8.2) g/dl Albumin 3.2 L (3.4-5.0) g/dl Globulin 3.6 gm/dL Albumin/Globulin Ratio 0.9 L (1-2) Amylase 20 L (25-115) U/L Lipase 139 (73-393) U/L Urine Color Light yellow (Yellow) Urine Appearance Clear (Clear) Urine pH 6.5 (5.0-8.0) Ur Specific [place] 1.025 (1.005-1.030) Urine Protein 1+ H (Negative) Urine Glucose (UA) Negative (Negative) Urine Ketones Negative (Negative) Urine Occult Blood Negative (Negative) Urine Nitrite Negative (Negative) Urine Bilirubin Negative (Negative) Urine Urobilinogen 0.2 (0.2-1.0) Ur Leukocyte Esterase Negative (Negative) Urine RBC Not seen (0-5) /hpf Urine WBC 0-5 (0-5) /hpf Ur Squamous Epith Cells 5-10 H (0-5) /hpf Urine Bacteria Not seen (FEW) /hpf Urine Mucus Not seen (FEW) /hpf Meds: Medications Discontinued Medications Generic Name Dose Route Start Last Admin Trade Name Freq PRN Reason Stop Dose Admin Sodium Chloride 1,000 mls @ 150 mls/hr 01/28/20 19:00 01/28/20 19:17 Normal Saline IV 150 mls/hr ASDIRECTED JAN Administration Ondansetron HCl 4 mg 01/28/20 18:52 01/28/20 19:17 Zofran IVPUSH 01/28/20 18:53 4 mg ONETIME ONE Administration Sodium Chloride 10 ml 01/28/20 18:52 01/28/20 19:17 Saline Flush FLUSH 10 ml ASDIRECTED PRN Administration Keep Vein Open - Re-Assessments/Exams Free Text/Narrative Re-Assessment/Exam: 01/28/20 20:38 Patient's hematology was grossly unremarkable. Electrolytes are normal. WBCs are normal, kidney function is normal, troponin was negative, liver enzymes are normal. alk phos and amylase, lipase are all normal. Ultrasound the gallbladder was found to be normal. Abdomen flat and upright x-ray was completed findings were positive for air-fluid levels with no intestinal dilation consistent with that of a gastroenteritis. Patient did have a good bowel movement today and has been passing gas, so the suspicion for obstruction is low. We will discharge the patient home with a prescription for Zofran and the understanding that if the symptoms worsen or fail to improve over the next few days, she would return for further evaluation. She is in agreement with this plan. Discharge instructions as documented. Departure - Departure Time of Disposition: 20:38 Disposition: Home, Self-Care 01 Condition: Fair Clinical Impression: Gastroenteritis - Discharge Information *PRESCRIPTION DRUG MONITORING PROGRAM REVIEWED*: No *COPY OF PRESCRIPTION DRUG MONITORING REPORT IN PATIENT LIDYA: No Prescriptions: Ondansetron [Zofran ODT] 4 mg PO Q6H PRN #10 tab.dis PRN Reason: Nausea/Vomiting Instructions: Viral Gastroenteritis, Adult Referrals: Rupal Finch MD [Primary Care Provider] - Forms: ED Department Discharge Additional Instructions: You were seen in the emergency department today for nausea, vomiting, and upper abdominal pressure. Your work-up included blood work, urinalysis, and ultrasound of your gallbladder, and an abdomen x-ray. Overall, your work-up was found to be normal with the exception of some air-fluid levels on your x- ray which would be consistent with a diagnosis of gastroenteritis. At this time there is no signs of a bowel obstruction. You did state that you had a bowel movement today which makes this diagnosis unlikely. Recommend that you maintain a clear liquid diet for the next 24 to 48 hours. After that time you may advance as tolerated. Avoid fruit juices and dairy products until symptoms have completely resolved. A prescription for Zofran has been sent to [facility]. You may use this every 6 hours as needed for nausea or vomiting. As we discussed, if your symptoms should worsen or fail to improve over the next few days, I would recommend that she return for further evaluation. Sepsis Event Note - Evaluation Sepsis Screening Result: No Definite Risk - Focused Exam Vital Signs: Vital Signs Temp Pulse Resp BP Pulse Ox 01/28/20 18:33 98 F 98 20 148/71 H 95 Date Exam was Performed: 01/28/20 Time Exam was Performed: 22:24 - My Orders Last 24 Hours: My Active Orders 01/28/20 18:51 Peripheral IV Insertion Adult [OM.PC] Stat 01/28/20 18:52 Peripheral IV Care [RC] . DIRECTED - Assessment/Plan Last 24 Hours: My Active Orders 01/28/20 18:51 Peripheral IV Insertion Adult [OM.PC] Stat 04/04/20 18:52 Peripheral IV Care [RC] . DIRECTED
--- NOTE | 2020-01-28 20:08 | US ---
Limited abdominal ultrasound: Multiple real-time images of the upper right abdomen were obtained. Comparison: Prior CT exam of the abdomen dated 02/13/18 and previous right upper quadrant abdominal ultrasound of 11/04/10. Findings: Liver shows no focal parenchymal abnormality. Gallbladder contains no shadowing gallstones. No gallbladder wall thickening or biliary duct dilatation is seen. Right kidney shows no hydronephrosis. Hypoechoic area is seen within the upper right kidney. This is believed to represent a cyst given findings on previous CT exam. This finding measures about 3.3 cm. This is also fairly stable from prior ultrasound. Pancreas is partially obscured from bowel gas. Visualized portions of the pancreas shows no discrete abnormality. Inferior vena cava is patent. Main portal vein shows hepatopedal flow. Impression: 1. Nothing acute is appreciated on right upper quadrant abdominal ultrasound as described above. Diagnostic code #2 Study was dictated in MDT
--- NOTE | 2020-01-28 20:26 | CR ---
Abdomen: Supine and upright views of the abdomen were obtained. Several air-fluid levels are seen within small bowel as well as colon. No bowel dilatation is seen. No abnormal calcifications or soft tissue abnormality is seen. Bony structures appear within normal limits for the patient's age. Impression: 1. Air-fluid levels within nondilated small bowel and colon. These findings raise the possibility of gastroenteritis. 2. No other acute finding is seen. Diagnostic code #3 Study was dictated in MDT
== END 2020-01-28 20:53 | disposition home or self-care (01) ==
LOC: JD.ED 18:05
DX: K52.9 Noninfective gastroenteritis and colitis, unspecified (principal); F17.210 Nicotine dependence, cigarettes, uncomplicated; E78.00 Pure hypercholesterolemia, unspecified; I10 Essential (primary) hypertension; K21.9 Gastro-esophageal reflux disease without esophagitis; G43.909 Migraine, unspecified, not intractable, without status migrainosus; E11.9 Type 2 diabetes mellitus without complications; E66.9 Obesity, unspecified; Z68.41 Body mass index [BMI] 40.0-44.9, adult; Z91.040 Latex allergy status; Z88.8 Allergy status to other drugs, medicaments and biological substances; Z79.82 Long term (current) use of aspirin; Z79.4 Long term (current) use of insulin; Z79.899 Other long term (current) drug therapy
CPT/HCPCS: 36415; 74019; 76705; 80053; 81001; 82150; 83690; 84484; 85025; 86140; 96361; 96374; 99284; J2405; J7030; 99283

== ENCOUNTER 2020-02-07 02:13 | Emergency (ER) | payer MEDICARE ==
[2020-02-07] MEDS ORDERED: Sodium Chloride 0.9% 10 ML Syringe FLUSH PRN (02:52)
[2020-02-07] MEDS ORDERED: HYDROmorphone 0.5 MG/0.5 ML Syringe IVPUSH ONE (02:52)
[2020-02-07] MEDS ORDERED: Ondansetron 4 MG/2 ML SDV IVPUSH ONE (02:52)
[2020-02-07] MEDS ORDERED: Famotidine 20 MG/2 ML SDV IVPUSH ONE (02:52)
[2020-02-07] MEDS ORDERED: Sodium Chloride 0.9% 1,000 ML IV SCH (03:00)
--- NOTE | 2020-02-07 03:20 | EDM.PDOC ---
ED HPI GENERAL MEDICAL PROBLEM - General Chief Complaint: Gastrointestinal Problem Stated Complaint: DIARRHEA VOMITING CHEST PRESSURE Time Seen by Provider: 02/07/20 02:46 Source of Information: Reports: Patient, RN Notes Reviewed - History of Present Illness INITIAL COMMENTS - FREE TEXT/NARRATIVE: 54 yr old female with onset of abd pain, nausea, watery diarrhea about 3 days ago. Was feeling better earlier yesterday, ate a more nl lunch and than became ill again last evening with more abd pain, cramping, more watery diarrhea. Has not been vomiting. No one else ill around home. Abdominal Pain Score (Numeric/FACES): 6 - Related Data Allergies Allergy/AdvReac Type Severity Reaction Status Date / Time latex Allergy Rash Verified 02/07/20 02:38 liraglutide [From Victoza] AdvReac Nausea and Verified 02/07/20 02:38 Vomiting metformin AdvReac Nausea and Verified 02/07/20 02:38 Vomiting metoprolol AdvReac Diarrhea Verified 02/07/20 02:38 trigenta Allergy Cannot Uncoded 01/28/20 18:38 Remember Home Meds: Home Meds Amitriptyline [Elavil] 50 mg PO BEDTIME 01/01/15 [History] Aspirin [Halfprin] 81 mg PO DAILY 09/25/17 [History] Cholecalciferol (Vitamin D3) [Vitamin D3] 2,000 units PO DAILY 09/25/17 [History ] Ezetimibe [Zetia] 10 mg PO DAILY 09/25/17 [History] Fish Oil/[place]-3 Fatty Acids [Fish Oil 1,000 MG] 1 cap PO DAILY 09/25/17 [ History] Insulin Aspart [Novolog Flexpen] 35 units SUBCUT TID 09/25/17 [History] Magnesium Oxide 400 mg PO DAILY 09/25/17 [History] Multivitamin [Multivitamins] 1 cap PO DAILY 09/25/17 [History] Pantoprazole Sodium [Protonix] 40 mg PO DAILY 09/25/17 [History] SUMAtriptan Succinate [Imitrex] 100 mg PO ASDIRECTED PRN 09/25/17 [History] Ubidecarenone [Co Q-10] 100 mg PO DAILY 09/25/17 [History] Vitamin E 100 unit PO DAILY 09/25/17 [History] atorvaSTATin [Lipitor] 40 mg PO DAILY 09/25/17 [History] Triamcinolone Acetonide [Triamcinolone Acetonide 0.1% Crm] 1 applic TOP ASDIRECTED 09/28/17 [History] Losartan [Cozaar] 1 tab PO DAILY 01/28/20 [History] Ondansetron [Zofran ODT] 4 mg PO Q6H PRN #10 tab.dis 01/28/20 [Rx] Levofloxacin [Levaquin] 500 mg PO DAILY #2 tablet 02/07/20 [Rx] Ondansetron [Zofran ODT] 4 mg PO Q6H PRN #7 tab.dis 02/07/20 [Rx] Past Medical History Cardiovascular History: Reports: High Cholesterol, Hypertension Respiratory History: Reports: Sleep Apnea Gastrointestinal History: Reports: GERD, Irritable Bowel Syndrome Musculoskeletal History: Reports: Other (See Below) Other Musculoskeletal History: foot pain Neurological History: Reports: Migraines, Other (See Below) Other Neuro History: restless leg Endocrine/Metabolic History: Reports: Diabetes, Type II, Obesity/BMI 30+, Vitamin D Deficiency - Past Surgical History GI Surgical History: Reports: Colonoscopy, EGD Musculoskeletal Surgical History: Reports: Arthroscopic Knee, Other (See Below) Other Musculoskeletal Surgeries/Procedures:: right acl recostruction Social & Family History - Family History Family Medical History: Noncontributory - Tobacco Use Smoking Status *Q: Current Every Day Smoker Years of Tobacco use: 33 Packs/Tins Daily: 1 - Caffeine Use Caffeine Use: Reports: Coffee - Living Situation & Occupation Living situation: Reports: Occupation: Unemployed ED ROS GENERAL - Review of Systems Review Of Systems: See Below Constitutional: Reports: Chills. Denies: Fever HEENT: Reports: No Symptoms Respiratory: Denies: Shortness of Breath Cardiovascular: Denies: Chest Pain GI/Abdominal: Reports: Abdominal Pain, Diarrhea, Nausea. Denies: Hematochezia, Melena, Vomiting Musculoskeletal: Reports: No Symptoms Skin: Reports: No Symptoms Neurological: Reports: Dizziness ED EXAM, GI/ABD - Physical Exam Exam: See Below General Appearance: Alert, Moderate Distress Throat/Mouth: Other (oral mucosa very dry) Head: Atraumatic Neck: Supple Respiratory/Chest: No Respiratory Distress, Lungs Clear, Normal Breath Sounds Cardiovascular: Regular Rate, Rhythm GI/Abdominal Exam: Soft, Tender (mild mid and upper and mid upper tenderness). No: Guarding, Rebound Extremities: Normal Inspection Neurological: Alert, Oriented, No Motor/Sensory Deficits Skin Exam: Warm, Dry, Normal Color Course - Vital Signs Last Recorded V/S: Last Vital Signs Temp 97.3 F 02/07/20 02:33 Pulse 94 02/07/20 02:33 Resp 16 02/07/20 02:33 BP 100/83 02/07/20 02:33 Pulse Ox 100 02/07/20 02:33 - Orders/Labs/Meds Orders: Active Orders 24 hr Category Date Time Status Peripheral IV Care [RC] . DIRECTED Care 02/07/20 02:53 Active Sodium Chloride 0.9% [Normal Saline] 1,000 ml Med 02/07/20 03:00 Active IV ONETIME Sodium Chloride 0.9% [Saline Flush] Med 02/07/20 02:52 Active 10 ml FLUSH ASDIRECTED PRN Peripheral IV Insertion Adult [OM.PC] Stat Oth 02/07/20 02:52 Ordered Medication Orders Sodium Chloride (Normal Saline) 1,000 mls @ 999 mls/hr IV ONETIME [facility] Last Admin: 02/07/20 02:59 Dose: 999 mls/hr Sodium Chloride (Saline Flush) 10 ml FLUSH ASDIRECTED PRN PRN Reason: Keep Vein Open Last Admin: 02/07/20 03:02 Dose: 10 ml Labs: Laboratory Tests 02/07/20 02/07/20 Range/Units 02:30 02:30 WBC 22.46 H (3.98-10.04) K/mm3 RBC 6.60 H (3.98-5.22) M/mm3 Hgb 17.5 H D (11.2-15.7) gm/dl Hct 52.6 H (34.1-44.9) % MCV 79.7 (79.4-94.8) fl MCH 26.5 (25.6-32.2) pg MCHC 33.3 (32.2-35.5) g/dl RDW Std Deviation 44.0 (36.4-46.3) fL Plt Count 557 H D (182-369) K/mm3 MPV 9.2 L (9.4-12.3) fl Neut % (Auto) 86.5 H (34.0-71.1) % Lymph % (Auto) 8.5 L (19.3-51.7) % Brown % (Auto) 4.1 L (4.7-12.5) % Eos % (Auto) 0.5 L (0.7-5.8) Baso % (Auto) 0.1 (0.1-1.2) % Neut # (Auto) 19.41 H (1.56-6.13) K/mm3 Lymph # (Auto) 1.92 (1.18-3.74) K/mm3 Brown # (Auto) 0.91 H (0.24-0.36) K/mm3 Eos # (Auto) 0.12 (0.04-0.36) K/mm3 Baso # (Auto) 0.03 (0.01-0.08) K/mm3 Manual Slide Review Abnormal smear Sodium 136 (136-145) mEq/L Potassium 4.0 (3.5-5.1) mEq/L Chloride 97 L (98-107) mEq/L Carbon Dioxide 28 (21-32) mEq/L Anion Gap 15.0 (5-15) BUN 16 (7-18) mg/dL Creatinine 1.4 H (0.55-1.02) mg/dL Est Cr Clr Drug Dosing 38.44 mL/min Estimated GFR (MDRD) 39 (>60) mL/min BUN/Creatinine Ratio 11.4 L (14-18) Glucose 314 H (74-106) mg/dL Calcium 10.0 D (8.5-10.1) mg/dL Total Bilirubin 0.6 (0.2-1.0) mg/dL AST 22 (15-37) U/L ALT 35 (14-59) U/L Alkaline Phosphatase 108 (46-116) U/L Total Protein 8.1 (6.4-8.2) g/dl Albumin 3.9 (3.4-5.0) g/dl Globulin 4.2 gm/dL Albumin/Globulin Ratio 0.9 L (1-2) Meds: Medications Generic Name Dose Route Start Last Admin Trade Name Freq PRN Reason Stop Dose Admin Sodium Chloride 1,000 mls @ 999 mls/hr 02/07/20 03:00 02/07/20 02:59 Normal Saline IV 999 mls/hr ONETIME JAN Administration Sodium Chloride 10 ml 02/07/20 02:52 02/07/20 03:02 Saline Flush FLUSH 10 ml ASDIRECTED PRN Administration Keep Vein Open Discontinued Medications Generic Name Dose Route Start Last Admin Trade Name [place] PRN Reason Stop Dose Admin Famotidine 20 mg 02/07/20 02:52 02/07/20 03:00 Pepcid IVPUSH 02/07/20 02:53 20 mg ONETIME ONE Administration Hydromorphone HCl 0.5 mg 02/07/20 02:52 02/07/20 03:01 Dilaudid IVPUSH 02/07/20 02:53 0.5 mg ONETIME ONE Administration Levofloxacin 500 mg 02/07/20 04:14 Levaquin PO 02/07/20 04:15 ONETIME ONE Ondansetron HCl 4 mg 02/07/20 02:52 02/07/20 03:00 Zofran IVPUSH 02/07/20 02:53 4 mg ONETIME ONE Administration - Re-Assessments/Exams Free Text/Narrative Re-Assessment/Exam: 02/07/20 04:20 WBC elevated at about 22,000. Initially she did not think this could be food borne but when questioned further she states some pizza that she ate before becoming ill "did not taste good" With that in mind and this looking, acting like food borne gastroenteritis will give levaquin 500 mg PO now and have her take 500 mg daily for the next 2 days. She does feel much better now after IV fluid and meds. Departure - Departure Time of Disposition: 04:15 Disposition: Home, Self-Care 01 Clinical Impression: Diarrhea Abdominal pain Qualifiers: Abdominal location: left lower quadrant Qualified Code(s): R10.32 - Left lower quadrant pain - Discharge Information Prescriptions: Levofloxacin [Levaquin] 500 mg PO DAILY #2 tablet Ondansetron [Zofran ODT] 4 mg PO Q6H PRN #7 tab.dis PRN Reason: Nausea/Vomiting Instructions: Food Choices to Help Relieve Diarrhea, Adult, Diarrhea, Adult, [id number] Referrals: Rupal Finch MD [Primary Care Provider] - Forms: ED Department Discharge Additional Instructions: clear liquids until this evening, than careful bland diet as tolerated. zofran 4 mg ODT if needed for further nausea or if needed for vomiting. You have been given levaquin 500 mg here in the ED. Continue 500 mg orally daily for the next 2 days. These prescriptions have been sent to [facility]. Return to ED as needed if symptoms worsening in any way. Sepsis Event Note - Evaluation Sepsis Screening Result: No Definite Risk - Focused Exam Vital Signs: Vital Signs Temp Pulse Resp BP Pulse Ox 02/07/20 02:33 97.3 F 94 16 100/83 100 Date Exam was Performed: 02/07/20 Time Exam was Performed: : - My Orders Last 24 Hours: My Active Orders 02/07/20 02:52 Sodium Chloride 0.9% [Saline Flush] 10 ml FLUSH ASDIRECTED PRN Peripheral IV Insertion Adult [OM.PC] Stat 02/07/20 02:53 Peripheral IV Care [RC] . DIRECTED 02/07/20 03:00 Sodium Chloride 0.9% [Normal Saline] 1,000 ml IV ONETIME - Assessment/Plan Last 24 Hours: My Active Orders 02/07/20 02:52 Sodium Chloride 0.9% [Saline Flush] 10 ml FLUSH ASDIRECTED PRN Peripheral IV Insertion Adult [OM.PC] Stat 02/07/20 02:53 Peripheral IV Care [RC] . DIRECTED 02/07/20 03:00 Sodium Chloride 0.9% [Normal Saline] 1,000 ml IV ONETIME
[2020-02-07] MEDS ORDERED: Levofloxacin 250 MG Tab PO ONE (04:14)
[2020-02-07 05:19] VITALS: BP 118/75; PULSE 78
== END 2020-02-07 05:15 | disposition home or self-care (01) ==
LOC: JD.ED 02:13
DX: R10.32 Left lower quadrant pain (principal); R19.7 Diarrhea, unspecified; E78.00 Pure hypercholesterolemia, unspecified; I10 Essential (primary) hypertension; K21.9 Gastro-esophageal reflux disease without esophagitis; G43.909 Migraine, unspecified, not intractable, without status migrainosus; E11.9 Type 2 diabetes mellitus without complications; F17.210 Nicotine dependence, cigarettes, uncomplicated; E66.9 Obesity, unspecified; Z68.41 Body mass index [BMI] 40.0-44.9, adult; Z91.040 Latex allergy status; Z88.8 Allergy status to other drugs, medicaments and biological substances; Z79.899 Other long term (current) drug therapy; Z79.82 Long term (current) use of aspirin; Z79.4 Long term (current) use of insulin
CPT/HCPCS: 36415; 80053; 85025; 94762; 96361; 96374; 96375; 99284; A9270; J1170; J2405; J3490; J7030

== ENCOUNTER 2020-04-04 17:24 | Emergency (ER) | payer MEDICARE ==
[2020-04-04 17:38] VITALS: BP 157/87; PULSE 98
[2020-04-04] MEDS ORDERED: diphenhydrAMINE 50 MG/ML SDV IVPUSH ONE (17:51)
[2020-04-04] MEDS ORDERED: HYDROmorphone 0.5 MG/0.5 ML Syringe IVPUSH ONE (17:52)
[2020-04-04] MEDS ORDERED: Metoclopramide 10 MG/2 ML SDV IVPUSH ONE (17:52)
--- NOTE | 2020-04-04 17:56 | EDM.PDOC ---
ED HPI GENERAL MEDICAL PROBLEM - General Chief Complaint: Headache Stated Complaint: NAUSEA/HEADACHE Time Seen by Provider: 04/04/20 17:34 Source of Information: Reports: Patient History Limitations: Reports: No Limitations - History of Present Illness INITIAL COMMENTS - FREE TEXT/NARRATIVE: Patient is a 54-year-old female who presents with complaints of a migraine headache, nausea, and vomiting. She had a colonoscopy/EGD done this morning and was discharged from this facility around 2:00 this afternoon. She states that her headache began prior to leaving PACU. She often has this reaction after anesthesia. She went home to rest, however the headache got worse. She took an Imitrex around 345 this afternoon. It is around the same time that she started having dry heaves. She states that she has been dealing with migraines since she was 17 years old and that this feels like a typical migraine for her. She denies any fever, chills, or abdominal pain. Bilateral Frontal Headache Pain Score (Numeric/FACES): 10 - Related Data Allergies Allergy/AdvReac Type Severity Reaction Status Date / Time ADALI Inhibitors Allergy Severe Cough Verified 04/04/20 17:38 latex Allergy Severe Rash Verified 04/04/20 17:38 [email or web address] [From Chantix] Allergy Severe Nausea and Verified 04/04/20 17:38 Vomiting liraglutide [From Victoza] AdvReac Severe Nausea and Verified 04/04/20 17:38 Vomiting metformin AdvReac Severe Nausea and Verified 04/04/20 17:38 Vomiting metoprolol AdvReac Severe Diarrhea Verified 04/04/20 17:38 Home Meds: Home Meds Aspirin [Halfprin] 81 mg PO DAILY 09/25/17 [History] Cholecalciferol (Vitamin D3) [Vitamin D3] 2,000 units PO DAILY 09/25/17 [History ] Ezetimibe [Zetia] 10 mg PO DAILY 09/25/17 [History] Fish Oil/[place]-3 Fatty Acids [Fish Oil 1,000 MG] 1 cap PO DAILY 09/25/17 [ History] Insulin Aspart [Novolog Flexpen] 35 units SUBCUT TID 09/25/17 [History] Multivitamin [Multivitamins] 1 cap PO DAILY 09/25/17 [History] Pantoprazole Sodium [Protonix] 40 mg PO DAILY 09/25/17 [History] SUMAtriptan succinate [Imitrex] 100 mg PO ASDIRECTED PRN 09/25/17 [History] Ubidecarenone [Co Q-10] 200 mg PO DAILY 09/25/17 [History] Vitamin E 200 unit PO DAILY 09/25/17 [History] atorvaSTATin [Lipitor] 40 mg PO DAILY 09/25/17 [History] Triamcinolone Acetonide [Triamcinolone Acetonide 0.1% Crm] 1 applic TOP ASDIRECTED 09/28/17 [History] Losartan [Cozaar] 50 mg PO DAILY 01/28/20 [History] Amitriptyline [Elavil] 75 mg PO DAILY 04/03/20 [History] Empagliflozin [Jardiance] 10 mg PO QAM 04/03/20 [History] Gabapentin [Neurontin] 300 mg PO TID 04/03/20 [History] Insulin Degludec [Tresiba] 90 units SQ BEDTIME 04/03/20 [History] Magnesium Oxide 250 mg PO Q48H 04/03/20 [History] Ozempic 1 mg SQ FR 04/03/20 [History] Pramipexole [Mirapex] 0.25 mg PO DAILY 04/03/20 [History] Past Medical History HEENT History: Reports: Impaired Vision Cardiovascular History: Reports: High Cholesterol, Hypertension, Other (See Below) Other Cardiovascular History: chest pain Respiratory History: Reports: Asthma, Sleep Apnea Gastrointestinal History: Reports: GERD, Irritable Bowel Syndrome, Other (See Below) Other Gastrointestinal History: fatty liver Genitourinary History: Reports: None Musculoskeletal History: Reports: Other (See Below) Other Musculoskeletal History: foot pain, restless legs, bilateral carpal tunnel syndrome, right trigger finger with surgery Neurological History: Reports: Migraines, Other (See Below) Other Neuro History: restless leg Psychiatric History: Reports: None Endocrine/Metabolic History: Reports: Diabetes, Type II, Obesity/BMI 30+, Vitamin D Deficiency Hematologic History: Reports: None Immunologic History: Reports: None Oncologic (Cancer) History: Reports: None Dermatologic History: Reports: Other (See Below) Other Dermatologic History: dysplastic nevi - Infectious Disease History Infectious Disease History: Reports: None - Past Surgical History Head Surgeries/Procedures: Reports: None HEENT Surgical History: Reports: None Respiratory Surgical History: Reports: None GI Surgical History: Reports: Colonoscopy, EGD Female Surgical History: Reports: None Endocrine Surgical History: Reports: None Neurological Surgical History: Reports: None Musculoskeletal Surgical History: Reports: Arthroscopic Knee, Other (See Below) Other Musculoskeletal Surgeries/Procedures:: right acl recostruction Oncologic Surgical History: Reports: None Social & Family History - Family History Family Medical History: Noncontributory - Tobacco Use Smoking Status *Q: Current Every Day Smoker Years of Tobacco use: 28 Packs/Tins Daily: 0.5 - Caffeine Use Caffeine Use: Reports: Coffee, Soda - Recreational Drug Use Recreational Drug Use: No - Living Situation & Occupation Living situation: Reports: Occupation: Unemployed ED ROS GENERAL - Review of Systems Review Of Systems: Comprehensive ROS is negative, except as noted in HPI. - Physical Exam Exam: See Below Exam Limited By: No Limitations General Appearance: Alert, WD/WN, Mild Distress Respiratory/Chest: No Respiratory Distress, Lungs Clear, Normal Breath Sounds, No Accessory Muscle Use, Chest Non-Tender Cardiovascular: Normal Peripheral Pulses, Regular Rate, Rhythm, No Edema, No Gallop, No JVD, No Murmur, No Rub GI/Abdominal: Normal Bowel Sounds, Soft, Non-Tender, No Organomegaly, No Distention, No Abnormal Bruit, No Mass Neuro Exam (Abbreviated): Alert, Oriented, CN II-XII Intact, Normal Cognition, Normal Gait, Normal Reflexes, No Motor/Sensory Deficits Psychiatric: Normal Affect, Normal Mood Skin Exam: Warm, Dry, Intact, Normal Color, No Rash Course - Vital Signs Last Recorded V/S: Last Vital Signs Temp 97.1 F 04/04/20 17:34 Pulse 98 04/04/20 17:34 Resp 22 H 04/04/20 17:34 BP 157/87 H 04/04/20 17:34 Pulse Ox 99 04/04/20 17:34 - Orders/Labs/Meds Orders: Active Orders 24 hr Category Date Time Status Dextrose 5%-0.9% NaCl [Dextrose 5%-Normal Saline] 1,000 Med 04/04/20 18:00 Active ml IV ASDIRECTED Medication Orders Dextrose/Sodium Chloride (Dextrose 5%-Normal Saline) 1,000 mls @ 999 mls/hr IV ASDIRECTED JAN Last Admin: 04/04/20 18:03 Dose: 999 mls/hr Meds: Medications Generic Name Dose Route Start Last Admin Trade Name Freq PRN Reason Stop Dose Admin Dextrose/Sodium Chloride 1,000 mls @ 999 mls/hr 04/04/20 18:00 04/04/20 18:03 Dextrose 5%-Normal Saline IV 999 mls/hr ASDIRECTED JAN Administration Discontinued Medications Generic Name Dose Route Start Last Admin Trade Name [place] PRN Reason Stop Dose Admin Diphenhydramine HCl 25 mg 04/04/20 17:51 04/04/20 18:04 Benadryl IVPUSH 04/04/20 17:52 25 mg ONETIME ONE Administration Hydromorphone HCl 0.5 mg 04/04/20 17:52 04/04/20 18:04 Dilaudid IVPUSH 04/04/20 17:53 0.5 mg ONETIME ONE Administration Metoclopramide HCl 7.5 mg 04/04/20 17:52 04/04/20 18:03 Reglan IVPUSH 04/04/20 17:53 7.5 mg ONETIME ONE Administration - Re-Assessments/Exams Free Text/Narrative Re-Assessment/Exam: 04/04/20 17:55 Patient is a 54-year-old female who presents with headache and vomiting postop. She had an EGD colonoscopy done today in which several biopsies were taken. Since she had biopsies taken, we will refrain from using NSAIDs to treat this headache. I have ordered a liter of D5 NS this patient has not had much to eat in the last 24 hours. We will also do Benadryl 25 mg IV, Reglan 7.5 mg IV, Dilaudid 0.5 mg IV. Patient has a long history of migraine headaches, for, I do not feel any imaging is indicated at this time. 04/04/20 18:45 Pt is feeling much better after the medications given. She denies the need for any additional medicatons. We will allow her to finish the IV fluids and discharge her home. Departure - Departure Time of Disposition: 18:46 Disposition: Home, Self-Care 01 Condition: Good Clinical Impression: Migraine - Discharge Information *PRESCRIPTION DRUG MONITORING PROGRAM REVIEWED*: No *COPY OF PRESCRIPTION DRUG MONITORING REPORT IN PATIENT LIDYA: No Instructions: Migraine Headache, [id number] Forms: ED Department Discharge Additional Instructions: You were seen in the emergency department today for a migraine headache after your EGD/colonoscopy today. While in the ER, you received a liter of IVF, Benadryl, Dilaudid, and Reglan which improved your headache. Recommend that you go home and rest in a quiet, dark room. Ensure that you stay adequately hydrated. You may use over the counter tylenol or your imitrex as needed for headache. If you should experience any new or worsening symptoms of concern, please do not hesitate to return to the emergency department. Sepsis Event Note (ED) - Evaluation Sepsis Screening Result: No Definite Risk - Focused Exam Vital Signs: Vital Signs Temp Pulse Resp BP Pulse Ox 04/04/20 17:34 97.1 F 98 22 H 157/87 H 99 - My Orders Last 24 Hours: My Active Orders 04/04/20 18:00 Dextrose 5%-0.9% NaCl [Dextrose 5%-Normal Saline] 1,000 ml IV ASDIRECTED - Assessment/Plan Last 24 Hours: My Active Orders 04/04/20 18:00 Dextrose 5%-0.9% NaCl [Dextrose 5%-Normal Saline] 1,000 ml IV ASDIRECTED
[2020-04-04] MEDS ORDERED: Dextrose 5%-0.9% NaCl 1,000 ML IV SCH (18:00)
== END 2020-04-04 19:25 | disposition home or self-care (01) ==
LOC: JD.ED 17:24
DX: G43.909 Migraine, unspecified, not intractable, without status migrainosus (principal); R11.2 Nausea with vomiting, unspecified; E11.9 Type 2 diabetes mellitus without complications; E66.9 Obesity, unspecified; K21.9 Gastro-esophageal reflux disease without esophagitis; J45.909 Unspecified asthma, uncomplicated; F17.210 Nicotine dependence, cigarettes, uncomplicated; Z91.040 Latex allergy status; Z79.4 Long term (current) use of insulin; Z88.8 Allergy status to other drugs, medicaments and biological substances; Z79.82 Long term (current) use of aspirin; Z79.899 Other long term (current) drug therapy; Z68.41 Body mass index [BMI] 40.0-44.9, adult
CPT/HCPCS: 96361; 96374; 96375; 99284; J1170; J1200; J2765; J7042; 99283

== ENCOUNTER → 2020-04-04 | Day surgery (SDC) | payer MEDICARE ==
[~2020-04-04] MED LIST changes: -Ketorolac 30 MG/ML SDV IVPUSH SCH; -Lactated Ringers 1,000 ML ONE; +Lidocaine 1% 2 ML ONE; -Lidocaine 1% 4 ML ONE; +Lidocaine 1%/Sod Bicarbonate in NS 8.4% 1 ML Syringe IDERM PRN; -Lidocaine 1%/Sod Bicarbonate in NS 8.4% 1 ML Syringe IV PRN; +Ondansetron 4 MG/2 ML SDV IVPUSH PRN
--- NOTE | 2020-04-04 10:05 | PCM.PREANE ---
Preanesthetic Assessment - Anesthesia/Transfusion/Family Hx Anesthesia History: Prior Anesthesia Without Reaction Family History of Anesthesia Reaction: No Transfusion History: No Prior Transfusion(s) - Review of Systems General: Other (obese, had episode4 to 5 weeks ago with n/v, diagnosed with bacterial infection) Pulmonary: Other (asthma, FUAD with CPAP, current smoker) Cardiovascular: Other (HTN, ) Gastrointestinal: Diarrhea (4-5 times per day), Other (GERD) Neurological: Other (restless legs) Other: Reports: Diabetes, Liver Problems (fatty liver) - Physical Assessment NPO Status Date: 04/03/20 NPO Status Time: 21:00 Weight: 102 kg ASA Class: 3 Mental Status: Alert & Oriented x3 Dentition: Reports: Normal Dentition, Edentulous (upper) Thyro-Mental Finger Breadths: 3 Mouth Opening Finger Breadths: 3 ROM/Head Extension: Full Lungs: Clear to Auscultation, Normal Respiratory Effort Cardiovascular: Regular Rate, Regular Rhythm - Lab Values: Laboratory Last Values SARS Virus RNA (PCR) Negative (NEGATIVE) 04/02/20 14:00 - Allergies Allergies/Adverse Reactions: Allergies Allergy/AdvReac Type Severity Reaction Status Date / Time ADALI Inhibitors Allergy Cough Verified 04/03/20 12:32 latex Allergy Rash Verified 04/03/20 12:32 [email or web address] [From Chantix] Allergy Nausea and Verified 04/03/20 12:32 Vomiting liraglutide [From Victoza] AdvReac Nausea and Verified 04/03/20 12:32 Vomiting metformin AdvReac Nausea and Verified 04/03/20 12:32 Vomiting metoprolol AdvReac Diarrhea Verified 04/03/20 12:32 - Blood Blood Available: No Product(s) Available: None - Anesthesia Plan Pre-Op Medication Ordered: None - Acknowledgements Anesthesia Type Planned: MAC Pt an Appropriate Candidate for the Planned Anesthesia: Yes Alternatives and Risks of Anesthesia Discussed w Pt/Guardian: Yes Pt/Guardian Understands and Agrees with Anesthesia Plan: Yes PreAnesthesia Questionnaire HEENT History: Reports: Impaired Vision Cardiovascular History: Reports: High Cholesterol, Hypertension, Other (See Below) Other Cardiovascular History: chest pain Respiratory History: Reports: Asthma, Sleep Apnea Gastrointestinal History: Reports: GERD, Irritable Bowel Syndrome, Other (See Below) Other Gastrointestinal History: fatty liver Genitourinary History: Reports: None Musculoskeletal History: Reports: Other (See Below) Other Musculoskeletal History: foot pain, restless legs, bilateral carpal tunnel syndrome, right trigger finger with surgery Neurological History: Reports: Migraines, Other (See Below) Other Neuro History: restless leg Psychiatric History: Reports: None Endocrine/Metabolic History: Reports: Diabetes, Type II, Obesity/BMI 30+, Vitamin D Deficiency Hematologic History: Reports: None Immunologic History: Reports: None Oncologic (Cancer) History: Reports: None Dermatologic History: Reports: Other (See Below) Other Dermatologic History: dysplastic nevi - Infectious Disease History Infectious Disease History: Reports: None - Past Surgical History Head Surgeries/Procedures: Reports: None HEENT Surgical History: Reports: None Respiratory Surgical History: Reports: None GI Surgical History: Reports: Colonoscopy, EGD Female Surgical History: Reports: None Male Surgical History: Reports: None Endocrine Surgical History: Reports: None Neurological Surgical History: Reports: None Musculoskeletal Surgical History: Reports: Arthroscopic Knee, Other (See Below) Other Musculoskeletal Surgeries/Procedures:: right acl recostruction Oncologic Surgical History: Reports: None - SUBSTANCE USE Smoking Status *Q: Current Every Day Smoker Recreational Drug Use History: No - HOME MEDS Home Medications: Home Meds Aspirin [Halfprin] 81 mg PO DAILY 09/25/17 [History] Cholecalciferol (Vitamin D3) [Vitamin D3] 2,000 units PO DAILY 09/25/17 [History ] Ezetimibe [Zetia] 10 mg PO DAILY 09/25/17 [History] Fish Oil/[place]-3 Fatty Acids [Fish Oil 1,000 MG] 1 cap PO DAILY 09/25/17 [ History] Insulin Aspart [Novolog Flexpen] 35 units SUBCUT TID 09/25/17 [History] Multivitamin [Multivitamins] 1 cap PO DAILY 09/25/17 [History] Pantoprazole Sodium [Protonix] 40 mg PO DAILY 09/25/17 [History] SUMAtriptan succinate [Imitrex] 100 mg PO ASDIRECTED PRN 09/25/17 [History] Ubidecarenone [Co Q-10] 200 mg PO DAILY 09/25/17 [History] Vitamin E 200 unit PO DAILY 09/25/17 [History] atorvaSTATin [Lipitor] 40 mg PO DAILY 09/25/17 [History] Triamcinolone Acetonide [Triamcinolone Acetonide 0.1% Crm] 1 applic TOP ASDIRECTED 09/28/17 [History] Losartan [Cozaar] 50 mg PO DAILY 01/28/20 [History] Ondansetron [Zofran ODT] 4 mg PO Q6H PRN #7 tab.dis 02/07/20 [Rx] Amitriptyline [Elavil] 75 mg PO DAILY 04/03/20 [History] Empagliflozin [Jardiance] 10 mg PO QAM 04/03/20 [History] Gabapentin [Neurontin] 300 mg PO TID 04/03/20 [History] Hydrocodone/Acetaminophen [[place] 5-325 Tablet] 1 - 2 cap PO Q6H PRN 04/03/20 [ History] Hyoscyamine [Hyomax-SL] 0.125 mg PO DAILY 04/03/20 [History] Insulin Degludec [Tresiba] 90 units SQ BEDTIME 04/03/20 [History] Magnesium Oxide 250 mg PO Q48H 04/03/20 [History] Ozempic 1 mg SQ FR 04/03/20 [History] Pramipexole [Mirapex] 0.25 mg PO DAILY 04/03/20 [History] - CURRENT (IN HOUSE) MEDS Current Meds: Current Medications Lactated Ringer's (Ringers, Lactated) 1,000 mls @ 125 mls/hr IV ASDIRECTED JAN Stop: 04/04/20 23:00 Lidocaine/Sodium Bicarbonate (Buffered Lidocaine 1% In Ns 8.4%) 0.25 ml IDERM ONETIME PRN PRN Reason: Prior to IV Start Stop: 04/04/20 18:00 Sodium Chloride (Saline Flush) 10 ml FLUSH ASDIRECTED PRN PRN Reason: Keep Vein Open Stop: 04/04/20 18:00
--- NOTE | 2020-04-04 12:14 | PCM.OPNOTE ---
- General Post-Op/Procedure Note Date of Surgery/Procedure: 04/04/20 Operative Procedure(s): EGD and colonoscopy Pre Op Diagnosis: Nausea, abdominal cramps, diarrhea Post-Op Diagnosis: same Anesthesia Technique: MAC Primary Surgeon: Danna Traylor Anesthesia Provider: Caprice Collier Pathology: 1. Antrum biopsy 2. Ascending colon biopsies 3. Hepatic flexure polyp 4. Transverse colon biopsy 5. Descending colon biopsy 6. Sigmoid colon biopsy 7. Descending colon polyp Fluid Replacement, Intraop: 900 EBL in mLs: 0 Complications: none apparent Condition: Good
--- NOTE | 2020-04-04 12:15 | PCM.PRNOTE ---
- Free Text/Narrative Note: Operative Report Date of Procedure: April 04, 2020 Pre Op Diagnosis: Nausea, abdominal cramps, diarrhea Post-Op Diagnosis: Same Operative Procedures: 1. EGD with biopsy 2. Colonoscopy to the cecum with biopsy Primary Surgeon: Danna Traylor MD Anesthesia Provider: Caprice Ferrari CRNA and Lauren Barbour CRNA Anesthesia Technique: MAC IV Fluid Replacement, Intraop: 900cc crystalloid Output, Urine Amount: 0cc EBL in mLs: 0cc Findings: 1. Gastritis 2. Sliding hiatal hernia (1 to 2cm) 3. Diverticulosis 4. Colon polyps Specimens: 1. Antrum biopsy 2. Ascending colon biopsies 3. Hepatic flexure polyp 4. Transverse colon biopsy 5. Descending colon biopsy 6. Sigmoid colon biopsy 7. Descending colon polyp Drain/Tubes: None Indication: The patient is a 54-year-old lady who presented to the clinic with findings of recent colitis. The patient reported symptoms of nausea, abdominal cramps, and diarrhea. The patient did have treatment with antibiotic therapy but still had persistent symptoms. The patient was consented for a diagnostic EGD and colonoscopy. Risks of bleeding, and perforation were discussed, and the patient agreed to the risks and wished to proceed. Description of the procedure: The patient was taken back to the endoscopy suite, and placed in the left lateral decubitus position. A bite block was placed. The patient was sedated with MAC anesthesia. The Olympus video endoscope was inserted into the oropharynx and guided under direct vision into the esophagus, stomach, and duodenum. The duodenal bulb and second portion of the duodenum were unremarkable. The gastric antrum was inspected and cold biopsy forceps were used to take tissue samples for H. pylori. There was gastritis noted in the antrum. The scope was withdrawn to the stomach and retroflexed. There was no increased fluid, food or secretions in the upper gastrointestinal tract. No erosions or ulcers were noted. The scope was withdrawn to the esophagus. A this point we noted a small sliding hiatal hernia. No Barretts esophagus changes were noted. The endoscope was then withdrawn Next, anorectal examination was performed. No lesions, masses or hemorrhoids were noted externally or on palpation. The scope was placed into the rectum and advanced to cecum. Upon reaching the cecum, and the patients cecum was entered. There was mild tortuosity of the colon. The ileocecal valve was well visualized and the appendiceal orifice identified. At this point, the scope was slowly withdrawn, paying attention to the mucosa. The patient had adequate bowel prep, 80-85% of the mucosa was visible. Scattered diverticulosis was noted. Biopsies were taken at random intervals in the ascending, transverse, descending, and sigmoid colon with a cold biopsy forceps. Polyp was noted in the hepatic flexure measuring 2 to 3 mm and was flat. This was removed using a jumbo cold biopsy forceps. An additional 3 mm flat polyp was noted in the descending colon. This was removed with a jumbo cold biopsy forceps. In the rectum, scope was retroflexed and some hemorrhoidal tissue was noted. The scope was placed back in the lumen and excess air was aspirated. The scope was removed. The patient tolerated the procedure very well. Complications: None apparent Condition: The patient was transported to PACU in stable condition. Danna Traylor MD General Surgery
--- NOTE | 2020-04-04 12:19 | PCM48HPAN ---
Post Anesthesia Note - EVALUATION WITHIN 48HRS OF ANESTHETIC Vital Signs in Normal Range: Yes Patient Participated in Evaluation: Yes Respiratory Function Stable: Yes Airway Patent: Yes Cardiovascular Function Stable: Yes Hydration Status Stable: Yes Pain Control Satisfactory: Yes Nausea and Vomiting Control Satisfactory: Yes Mental Status Recovered: Yes Vital Signs: Last Vital Signs Temp 37.0 C 04/04/20 10:00 Pulse 96 04/04/20 10:00 Resp 16 04/04/20 10:00 BP 129/87 04/04/20 10:00 Pulse Ox 92 L 04/04/20 10:00 1211 141/89 101 16 95%
[2020-04-04 14:03] VITALS: BP 127/65; PULSE 99
== END | disposition home or self-care (01) ==
LOC: JD.SDS 09:52
PROVIDERS: ATTEND Surgery
DX: D12.4 Benign neoplasm of descending colon (principal); D12.3 Benign neoplasm of transverse colon; K29.70 Gastritis, unspecified, without bleeding; K57.30 Diverticulosis of large intestine without perforation or abscess without bleeding; K44.9 Diaphragmatic hernia without obstruction or gangrene; Z11.59 Encounter for screening for other viral diseases; F17.210 Nicotine dependence, cigarettes, uncomplicated; I10 Essential (primary) hypertension; E11.9 Type 2 diabetes mellitus without complications; Z88.2 Allergy status to sulfonamides; Z88.8 Allergy status to other drugs, medicaments and biological substances; Z79.899 Other long term (current) drug therapy
CPT/HCPCS: 43239; 45380; 82962; J2001; J2250; J2405; J2704; J3010; J7120; U0002

== ENCOUNTER 2020-04-17 20:51 | Emergency (ER) | payer MEDICARE ==
[2020-04-17] MEDS ORDERED: Alum Hydrox/Mag Hydrox/Simeth 30 ML, Lidocaine 2% 15 ML PO STA ×2 (21:16)
[2020-04-17] MEDS ORDERED: Aspirin 81 MG Tab.Chew PO STA (21:17)
--- NOTE | 2020-04-17 21:27 | EDM.PDOC ---
ED HPI GENERAL MEDICAL PROBLEM - General Chief Complaint: Chest Pain Stated Complaint: CHEST PAIN Time Seen by Provider: 04/17/20 20:58 Source of Information: Reports: Patient, Family () History Limitations: Reports: No Limitations - History of Present Illness INITIAL COMMENTS - FREE TEXT/NARRATIVE: Mrs. Cali is a very pleasant 54-year-old woman with numerous medical issues, including hypertension, dyslipidemia, obstructive sleep apnea, GERD, and diabetes, a committed smoker, who now presents to the ED after developing sudden-onset retrosternal chest pain (not a discomfort), sharp in character, around 20:25 this evening. She states that the pain is constant. She states that it feels better if she presses on her upper abdomen, otherwise, she has not identified any modifiers. She states that she has felt diaphoretic and nauseated since 13:00 this afternoon, but she has no associated dyspnea or sense of impending doom. She also reports that she felt some upper abdominal gassy discomfort for about 15 minutes prior to the onset of her retrosternal pain. She states that when her chest pain began, she had momentary tingling and numbness of both upper extremities. She also mentioned that as she turned to get on the gurney here in the ED, she had momentary back pain. No prior similar symptoms. Here in the ED, the patient's initial BP is modestly elevated at 151/91, otherwise, she is hemodynamically stable, afebrile, saturating 92% on room air. The patient states that she took some Pepto-Bismol around 14:00, however, she did not take any medications to treat tonight's symptoms. Other than tonight's symptoms, the patient denies recent fever, chills, sore throat, ear pain, nasal or sinus congestion, cough, dyspnea, chest pain, palpitations, nausea, vomiting, constipation, diarrhea, abdominal pain, urinary symptoms, recent weight gain or weight loss, recent bloody bowel movements or black bowel movements, recent joint aches, headaches, or rashes. The patient's PCP is Dr. Rupal Finch. Her Surgeon is Dr. Evangelina Traylor. Chest Pain Score (Numeric/FACES): 7 - Related Data Allergies Allergy/AdvReac Type Severity Reaction Status Date / Time ADALI Inhibitors Allergy Severe Cough Verified 04/17/20 21:03 latex Allergy Severe Rash Verified 04/17/20 21:03 varenicline [From Chantix] Allergy Severe Nausea and Verified 04/17/20 21:03 Vomiting liraglutide [From Victoza] AdvReac Severe Nausea and Verified 04/17/20 21:03 Vomiting metformin AdvReac Severe Nausea and Verified 04/17/20 21:03 Vomiting metoprolol AdvReac Severe Diarrhea Verified 04/17/20 21:03 Home Meds: Home Meds Aspirin [Halfprin] 81 mg PO DAILY 09/25/17 [History] Cholecalciferol (Vitamin D3) [Vitamin D3] 2,000 units PO DAILY 09/25/17 [History] Ezetimibe [Zetia] 10 mg PO DAILY 09/25/17 [History] Fish Oil/Dawson-3 Fatty Acids [Fish Oil 1,000 MG] 1 cap PO DAILY 09/25/17 [History] Insulin Aspart [Novolog Flexpen] 35 units SUBCUT TID 09/25/17 [History] Multivitamin [Multivitamins] 1 cap PO DAILY 09/25/17 [History] Pantoprazole Sodium [Protonix] 40 mg PO DAILY 09/25/17 [History] SUMAtriptan succinate [Imitrex] 100 mg PO ASDIRECTED PRN 09/25/17 [History] Ubidecarenone [Co Q-10] 200 mg PO DAILY 09/25/17 [History] Vitamin E 200 unit PO DAILY 09/25/17 [History] atorvaSTATin [Lipitor] 40 mg PO DAILY 09/25/17 [History] Triamcinolone Acetonide [Triamcinolone Acetonide 0.1% Crm] 1 applic TOP ASDIRECTED 09/28/17 [History] Losartan [Cozaar] 50 mg PO DAILY 01/28/20 [History] Amitriptyline [Elavil] 75 mg PO DAILY 04/03/20 [History] Empagliflozin [Jardiance] 10 mg PO QAM 04/03/20 [History] Gabapentin [Neurontin] 300 mg PO TID 04/03/20 [History] Insulin Degludec [Tresiba] 90 units SQ BEDTIME 04/03/20 [History] Magnesium Oxide 250 mg PO Q48H 04/03/20 [History] Ozempic 1 mg SQ FR 04/03/20 [History] Pramipexole [Mirapex] 0.25 mg PO DAILY 04/03/20 [History] Past Medical History HEENT History: Reports: Impaired Vision Cardiovascular History: Reports: High Cholesterol, Hypertension Respiratory History: Reports: Sleep Apnea (nightly CPAP 15) Gastrointestinal History: Reports: GERD, Other (See Below) (Hepatic steatosis) Musculoskeletal History: Reports: Fracture (right wrist), Other (See Below) (Bilatteral carpal tunnel syndrome, s/p right release) Neurological History: Reports: Migraines Psychiatric History: Reports: Other (See Below) (Restless leg syndrome) Endocrine/Metabolic History: Reports: Diabetes, Type II, Obesity/BMI 30+, Vitamin D Deficiency - Past Surgical History GI Surgical History: Reports: Colonoscopy (x 2 or 3), EGD (x 4) Musculoskeletal Surgical History: Reports: Arthroscopic Knee (right ACL repair), Carpal Tunnel (right only), Other (See Below) (Right thumb trigger finger release) Social & Family History - Family History Family Medical History: Noncontributory - Tobacco Use Smoking Status *Q: Current Every Day Smoker Years of Tobacco use: 28 Packs/Tins Daily: 1 Packs/Tins Daily Comment: Down from 3 ppd - Caffeine Use Caffeine Use: Reports: Coffee, Soda - Alcohol Use Alcohol Use History: No - Recreational Drug Use Recreational Drug Use: No - Living Situation & Occupation Living situation: Reports: , with Spouse Occupation: Unemployed ED ROS GENERAL - Review of Systems Review Of Systems: Comprehensive ROS is negative, except as noted in HPI. ED EXAM, GENERAL - Physical Exam Exam: See Below Exam Limited By: No Limitations General Appearance: Alert, WD/WN, Mild Distress (Appears uncomfortable) Eye Exam: Bilateral Eye: EOMI, Normal Inspection Ears: Normal External Exam, Hearing Grossly Normal Nose: Normal Inspection Throat/Mouth: Normal Inspection, Normal Lips, Normal Voice, No Airway Compromise Head: Atraumatic, Normocephalic Neck: Normal Inspection, Full Range of Motion Respiratory/Chest: No Respiratory Distress, Lungs Clear, Normal Breath Sounds, No Accessory Muscle Use, Other (The patient's retrosternal chest pain is made worse with palpation of the sternum) Cardiovascular: Normal Peripheral Pulses, Regular Rate, Rhythm, No Gallop, No JVD, No Murmur, No Rub Peripheral Pulses: 3+: Radial (L), Radial (R) GI/Abdominal: Normal Bowel Sounds, Soft, No Organomegaly, No Distention, No Abnormal Bruit, No Mass, Tender (mild, generalized, non-focal) (Female) Exam: Deferred Rectal (Female) Exam: Deferred Back Exam: Normal Inspection, Full Range of Motion, NT Extremities: Normal Range of Motion, Normal Capillary Refill, Other (1+ pitting pretibial edema bilaterally) Neurological: Alert, Oriented, Normal Cognition, No Motor/Sensory Deficits Psychiatric: Normal Affect Skin Exam: Warm, Dry, Intact, Normal Color, No Rash EKG INTERPRETATION EKG Date: 04/17/20 Time: 20:55 Rhythm: NSR Rate (Beats/Min): 90 [place]: RAD-Right [place] Deviation (likely secondary to LPFB) P-Wave: Present QRS: Other (Late transition) ST-T: Normal QT: Normal Comparison: NA - No Prior EKG Course - Vital Signs Last Recorded V/S: Last Vital Signs Temp 36.2 C 04/17/20 21:00 Pulse 86 04/18/20 01:10 Resp 18 04/17/20 23:17 BP 134/71 04/18/20 01:10 Pulse Ox 94 L 04/18/20 01:10 - Orders/Labs/Meds Orders: Active Orders 24 hr Category Date Time Status EKG Documentation Completion [RC] STAT Care 04/17/20 21:03 Active Chest 2V [CR] Stat Exams 04/17/20 21:15 Taken Labs: Laboratory Tests 04/17/20 04/17/20 04/17/20 Range/Units 21:23 21:23 21:23 WBC 11.45 H (3.98-10.04) K/mm3 RBC 5.79 H (3.98-5.22) M/mm3 Hgb 15.6 D (11.2-15.7) gm/dl Hct 48.0 H (34.1-44.9) % MCV 82.9 D (79.4-94.8) fl MCH 26.9 (25.6-32.2) pg MCHC 32.5 (32.2-35.5) g/dl RDW Std Deviation 50.1 H (36.4-46.3) fL Plt Count 407 H D (182-369) K/mm3 MPV 8.8 L (9.4-12.3) fl Neut % (Auto) 71.4 H (34.0-71.1) % Lymph % (Auto) 18.3 L (19.3-51.7) % [place] % (Auto) 6.5 (4.7-12.5) % Eos % (Auto) 3.2 (0.7-5.8) Baso % (Auto) 0.3 (0.1-1.2) % Neut # (Auto) 8.18 H (1.56-6.13) K/mm3 Lymph # (Auto) 2.10 (1.18-3.74) K/mm3 [place] # (Auto) 0.74 H (0.24-0.36) K/mm3 Eos # (Auto) 0.37 H (0.04-0.36) K/mm3 Baso # (Auto) 0.03 (0.01-0.08) K/mm3 Manual Slide Review Normal smear D-Dimer, Quantitative 0.27 (0.19-0.50) mg/L Sodium 139 (136-145) mEq/L Potassium 4.0 (3.5-5.1) mEq/L Chloride 103 (98-107) mEq/L Carbon Dioxide 26 (21-32) mEq/L Anion Gap 14.0 (5-15) BUN 12 (7-18) mg/dL Creatinine 1.0 (0.55-1.02) mg/dL Est Cr Clr Drug Dosing 53.82 mL/min Estimated GFR (MDRD) 58 (>60) mL/min BUN/Creatinine Ratio 12.0 L (14-18) Glucose 215 H (74-106) mg/dL Calcium 9.0 (8.5-10.1) mg/dL Magnesium 1.9 (1.8-2.4) mg/dl Total Bilirubin 0.5 (0.2-1.0) mg/dL AST 13 L (15-37) U/L ALT 23 (14-59) U/L Alkaline Phosphatase 87 (46-116) U/L Troponin I < 0.017 (0.00-0.056) ng/mL Total Protein 7.4 (6.4-8.2) g/dl Albumin 3.6 (3.4-5.0) g/dl Globulin 3.8 gm/dL Albumin/Globulin Ratio 1.0 (1-2) 04/18/20 Range/Units 00:25 WBC (3.98-10.04) K/mm3 RBC (3.98-5.22) M/mm3 Hgb (11.2-15.7) gm/dl Hct (34.1-44.9) % MCV (79.4-94.8) fl MCH (25.6-32.2) pg MCHC (32.2-35.5) g/dl RDW Std Deviation (36.4-46.3) fL Plt Count (182-369) K/mm3 MPV (9.4-12.3) fl Neut % (Auto) (34.0-71.1) % Lymph % (Auto) (19.3-51.7) % [place] % (Auto) (4.7-12.5) % Eos % (Auto) (0.7-5.8) Baso % (Auto) (0.1-1.2) % Neut # (Auto) (1.56-6.13) K/mm3 Lymph # (Auto) (1.18-3.74) K/mm3 [place] # (Auto) (0.24-0.36) K/mm3 Eos # (Auto) (0.04-0.36) K/mm3 Baso # (Auto) (0.01-0.08) K/mm3 Manual Slide Review D-Dimer, Quantitative (0.19-0.50) mg/L Sodium (136-145) mEq/L Potassium (3.5-5.1) mEq/L Chloride (98-107) mEq/L Carbon Dioxide (21-32) mEq/L Anion Gap (5-15) BUN (7-18) mg/dL Creatinine (0.55-1.02) mg/dL Est Cr Clr Drug Dosing mL/min Estimated GFR (MDRD) (>60) mL/min BUN/Creatinine Ratio (14-18) Glucose (74-106) mg/dL Calcium (8.5-10.1) mg/dL Magnesium (1.8-2.4) mg/dl Total Bilirubin (0.2-1.0) mg/dL AST (15-37) U/L ALT (14-59) U/L Alkaline Phosphatase (46-116) U/L Troponin I < 0.017 (0.00-0.056) ng/mL Total Protein (6.4-8.2) g/dl Albumin (3.4-5.0) g/dl Globulin gm/dL Albumin/Globulin Ratio (1-2) Meds: Medications Discontinued Medications Generic Name Dose Route Start Last Admin Trade Name Minoo PRN Reason Stop Dose Admin Aspirin 243 mg 04/17/20 21:17 04/17/20 21:30 Aspirin PO 04/17/20 21:18 243 mg ONETIME STA Administration Al Hydroxide/Mg Hydroxide 30 0 ml 04/17/20 21:16 04/17/20 21:30 ml/ Lidocaine HCl 15 ml PO 04/17/20 21:17 45 ml ONETIME STA Administration Famotidine 40 mg 04/18/20 01:25 Pepcid PO 04/18/20 01:26 ONETIME STA Sucralfate 1 gm 04/17/20 23:41 04/17/20 23:54 Carafate PO 04/17/20 23:42 1 gm ONETIME ONE Administration - Re-Assessments/Exams Free Text/Narrative Re-Assessment/Exam: 04/17/20 21:18 As above, the patient developed sudden onset retrosternal chest pain, sharp in character, around 20:25 this evening. Her pain is improved if she presses on her upper abdomen, and is made worse when I pressed on her sternum. There are no ischemic changes on the ECG obtained at triage. Her presentation is not consistent with a cardiac event, nevertheless, I have ordered a work-up that includes blood work and a chest x-ray. In the meantime, the patient will be given a GI cocktail, and since she is already on an 81 mg aspirin per day, I have also ordered an additional 243 mg of aspirin. I alerted the patient that in order to be certain that this is not a cardiac event, we will need to draw a second cardiac enzyme 4 hours after the onset of her symptoms, therefore she will likely be here for several hours. The patient was agreeable. 04/17/20 21:58 Two-view chest radiograph reviewed. Poor inspiratory effort. The cardiac silhouette is within normal limits. No pulmonary vascular congestion. No pleural effusions. No focal infiltrate. No pneumothorax. Formal read per the Radiologist pending. The patient reports that after she drank the GI cocktail, she had temporary improvement in her upper abdominal gassy discomfort, which has since returned, but her retrosternal chest discomfort has improved and stayed improved. 04/17/20 22:27 The patient's CBC is remarkable for a WBC count mildly elevated at 11.45, but with a normal smear. Her Hct is slightly elevated at 48.0, but with a Hgb normal at 15.6. Her platelets are elevated at 407,000. Her CMP is remarkable for a blood glucose elevated at 215, and is otherwise unremarkable. Her magnesium level is within normal limits at 1.9. Her initial troponin is undetectably low. Her D-dimer is within normal limits at 0.27. 04/18/20 01:18 The patient's repeat troponin remained undetectably low. 04/18/20 01:24 Test results discussed with the patient and her . As above, yamileth's work-up is unremarkable. Because she had some relief with a GI cocktail, her symptoms were all trouble by palpation of her abdomen, I suspect that yamileth's symptoms are due to GERD. The patient is already on pantoprazole, however, I explained that it is possible that these medicines work very well right up until they do not. I therefore recommended that she switch to a different PPI, but in the meantime take [id number] famotidine twice a day. The patient stated that her pantoprazole is prescribed, therefore she will talk to her prescribing physician. Departure - Departure Time of Disposition: 01:27 Disposition: Home, Self-Care 01 Condition: Good Clinical Impression: GERD (gastroesophageal reflux disease) - Discharge Information *PRESCRIPTION DRUG MONITORING PROGRAM REVIEWED*: Not Applicable *COPY OF PRESCRIPTION DRUG MONITORING REPORT IN PATIENT LIDYA: Not Applicable Instructions: Gastroesophageal Reflux Disease, Adult, [id number] Referrals: Rupal Finch MD [Primary Care Provider] - Danna Traylor MD [Physician] - Forms: ED Department Discharge Additional Instructions: You were seen in the emergency room after developing sudden onset chest pain. Work-up in the ER included blood work, a chest x-ray, and an ECG. Your entire work-up was unremarkable. You have not suffered a heart attack. You do not have a blood clot in your lungs. You do not have pneumonia or a collapsed lung. Based on your history, physical exam, and ER tests, your pain is most likely due to acid reflux. As discussed, we recommend that you switch from pantoprazole to a different proton pump inhibitor (PPI). Talk to your prescribing physician about that. In the meantime, we recommend that you take [id number] famotidine (Pepcid), 1 tablet twice a day. If any other problems, please do not hesitate to return to the ER. Sepsis Event Note (ED) - Evaluation Sepsis Screening Result: No Definite Risk - Focused Exam Vital Signs: Vital Signs Temp Pulse Resp BP Pulse Ox 04/18/20 01:10 86 134/71 94 L 04/17/20 23:17 91 18 131/87 93 L 04/17/20 22:18 95 20 150/95 H 94 L 04/17/20 21:00 36.2 C 70 16 151/91 H 92 L - My Orders Last 24 Hours: My Active Orders 04/17/20 21:03 EKG Documentation Completion [RC] STAT 04/17/20 21:15 Chest 2V [CR] Stat - Assessment/Plan Last 24 Hours: My Active Orders 04/17/20 21:03 EKG Documentation Completion [RC] STAT 04/17/20 21:15 Chest 2V [CR] Stat
[2020-04-17] MEDS ORDERED: Sucralfate 1 GM Tab PO ONE (23:41)
[2020-04-18 01:11] VITALS: BP 134/71; PULSE 86
[2020-04-18] MEDS ORDERED: Famotidine 20 MG Tab PO STA (01:25)
--- NOTE | 2020-04-18 06:14 | CR ---
Chest: 2 views of the chest were obtained. Comparison: No prior chest x-ray is available. Findings: Heart size and mediastinum are normal. Lungs are clear and no acute parenchymal change. Endplate spurring is noted within the lower thoracic spine. Impression: 1. Nothing acute is appreciated on 2 view chest x-ray. Diagnostic code #2 Study was dictated in MDT
== END 2020-04-18 01:41 | disposition home or self-care (01) ==
LOC: JD.ED 20:51
DX: K21.9 Gastro-esophageal reflux disease without esophagitis (principal); E78.00 Pure hypercholesterolemia, unspecified; I10 Essential (primary) hypertension; G25.81 Restless legs syndrome; E11.9 Type 2 diabetes mellitus without complications; E78.5 Hyperlipidemia, unspecified; G43.909 Migraine, unspecified, not intractable, without status migrainosus; F17.210 Nicotine dependence, cigarettes, uncomplicated; E66.9 Obesity, unspecified; Z68.41 Body mass index [BMI] 40.0-44.9, adult; Z88.8 Allergy status to other drugs, medicaments and biological substances; Z91.040 Latex allergy status; Z79.82 Long term (current) use of aspirin; Z79.4 Long term (current) use of insulin; Z79.899 Other long term (current) drug therapy
CPT/HCPCS: 36415; 71046; 80053; 83735; 84484; 85025; 85379; 93005; 99285; A9270